=== PATIENT | male | born 1950 | race Caucasian/White ===

== ENCOUNTER 2019-06-23 16:13 | Inpatient (IN) | payer MEDICARE, BC ==
[2019-06-23] MEDS ORDERED: MORPHINE SULFATE 4 MG/ML SYRINGE IV STA (16:28)
[2019-06-23] MEDS ORDERED: SODIUM CHLORIDE 0.9% 1,000 ML IV STA (16:28)
[2019-06-23 16:57] LABS: Basophils % (A) 0 %; Eosinophils # (A) 0.2 k/uL (0-0.7); Eosinophils % (A) 2 %; HCT 34.4 % (39.0-53.0); HGB 11.8 gm/dL (13.0-17.5); Lymphocytes # (A) 0.7 k/uL (1.0-4.8); Lymphocytes % (A) 6 %; MCH 32.2 pg (25.0-35.0); MCHC 34.4 g/dL (31.0-37.0); MCV 93.6 fL (80.0-100.0); Mean Platelet Volume 8.2; Monocytes # (A) 0.5 k/uL (0-1.0); Monocytes % (A) 4 %; Neutrophils % (A) 87 %; Platelet Count 237 k/uL (150-450); RBC 3.67 m/uL (4.30-5.90); RDW 13.8 % (11.5-15.5); WBC 11.4 k/uL (3.8-10.6)
[2019-06-23 17:06] LABS: Albumin 3.7 g/dL (3.5-5.0); Calcium 8.2 mg/dL (8.4-10.2); Total Bilirubin 0.5 mg/dL (0.2-1.3); Total Protein 6.3 g/dL (6.3-8.2)
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
[2019-06-23] MEDS ORDERED: IBUPROFEN 800 MG TAB PO STA (18:30)
[2019-06-23] MEDS ORDERED: ACETAMINOPHEN TAB 500 MG TAB PO STA (18:30)
[2019-06-23] MEDS ORDERED: ACETAMINOPHEN TAB 325 MG TAB PO PRN (18:30)
--- NOTE | 2019-06-23 18:56 | XR ---
EXAMINATION TYPE: XR abdomen acute w cxr DATE OF EXAM: 06/23/2019 COMPARISON: 10/17/2016 HISTORY: Abdominal pain TECHNIQUE: Chest x-ray with supine and upright abdomen FINDINGS: There is no heart failure nor confluent pneumonic infiltrate. Heart appears slightly enlarged. There are sternal wires. Costophrenic angles are clear. There is no sign of intestinal obstruction or pneumoperitoneum. There is apparent contrast in the rig ht colon. There is vascular calcification. There are no definite renal pathologic calcifications. Abd ominal aorta is atheromatous. IMPRESSION: Mild cardiomegaly. No active cardiopulmonary disease. Nonacute abdomen. Abdomen unchanged compared to old exam.
[2019-06-23] MEDS ORDERED: VANCOMYCIN IV PER PHARMACY 1 EACH MISC MISCELLANE PRN (19:34)
[2019-06-23] MEDS ORDERED: VANCOMYCIN 1,500 MG in SODIUM CHLORIDE 0.9% 250 ML IVPB ONE (20:30)
[2019-06-23] MEDS: MORPHINE SULFATE 4 MG/ML SYRINGE IVP PRN (22:07)
[2019-06-23] MEDS ORDERED: DOCUSATE 100 MG CAP PO PRN (22:29)
[2019-06-23] MEDS ORDERED: CALCIUM ACETATE 667 MG CAP PO PRN (22:29)
[2019-06-23] MEDS ORDERED: SENNOSIDES 8.6 MG TAB PO PRN (22:29)
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
[2019-06-23] MEDS ORDERED: LACTULOSE 20 GM/30 ML CUP PO PRN (22:39)
[2019-06-23] MEDS ORDERED: DIALYSIS (PERIT 1.5%) 2,000 ML 30 G/2,000 ML BAG INTRAPERIT ONE (23:00)
[2019-06-23] MEDS: CEFEPIME 2 GM in SODIUM CHLORIDE 0.9% 100 ML IVPB SCH (23:42)
[2019-06-24 01:13] LABS: Color,BF Yellow
[2019-06-24 01:14] LABS: Appearance,BF Clear
[2019-06-24 01:16] LABS: Nucleated Cells, Body Fluid 2345 /uL; RBC, Body Fluid 170 /uL
[2019-06-24 01:28] LABS: Mononuclear WBC,Body Fluid 11 %; Polynuclear WBC,Body Fluid 89 %; Total Cells Counted,Body Fluid 100
[2019-06-24] MEDS: MORPHINE SULFATE 4 MG/ML SYRINGE IVP PRN ×2 (04:02→11:06)
[2019-06-24] MEDS ORDERED: DIALYSIS (PERIT 1.5%) 2,000 ML 30 G/2,000 ML BAG INTRAPERIT ONE (05:00)
[2019-06-24 07:02] LABS: Glucose,Whole Blood 116 mg/dL (75-99)
[2019-06-24] MEDS ORDERED: INSULIN ASPART (NovoLOG) 100 UNIT/ML VIAL SQ SCH (07:30)
[2019-06-24] MEDS: ATORVASTATIN 40 MG TAB PO SCH (07:32)
[2019-06-24] MEDS: CALCIUM ACETATE 667 MG CAP PO SCH ×3 (07:32→18:04)
[2019-06-24] MEDS: HEPARIN SODIUM,PORCINE 5,000 UNIT/ML 1 ML VIAL SQ SCH ×2 (07:33→21:32)
[2019-06-24] MEDS: CLOPIDOGREL 75 MG TAB PO SCH (07:33)
[2019-06-24] MEDS: NICOTINE 14MG/24HR PATCH TRANSDERM SCH (07:33)
[2019-06-24] MEDS: POTASSIUM CHLORIDE ER 20 MEQ TAB.ER PO SCH ×3 (07:33→14:28)
[2019-06-24] MEDS: CALCITRIOL 0.25 MCG CAP PO SCH (07:33)
[2019-06-24] MEDS: ASPIRIN 81 MG PO SCH (07:33)
[2019-06-24 07:44] LABS: Calcium 7.4 mg/dL (8.4-10.2); Potassium 2.8 mmol/L (3.5-5.1)
[2019-06-24 07:57] LABS: HCT 28.6 % (39.0-53.0); MCH 32.9 pg (25.0-35.0); MCHC 34.5 g/dL (31.0-37.0); MCV 95.4 fL (80.0-100.0); Mean Platelet Volume 7.9; Platelet Count 184 k/uL (150-450); RBC 2.99 m/uL (4.30-5.90); RDW 15.1 % (11.5-15.5); WBC 6.6 k/uL (3.8-10.6)
[2019-06-24 08:02] LABS: HGB 9.9 gm/dL (13.0-17.5)
[2019-06-24] MEDS: DIALYSIS (PERIT 1.5%) 2,000 ML 30 G/2,000 ML BAG INTRAPERIT SCH ×3 (11:07→23:48)
[2019-06-24] MEDS ORDERED: POTASSIUM CHLORIDE 10 MEQ in WATER FOR INJECTION 1 100ML.BAG IVPB STA (11:11)
[2019-06-24] MEDS ORDERED: POTASSIUM CHLORIDE ER 20 MEQ TAB.ER PO STA (11:11)
--- NOTE | 2019-06-24 11:11 | P.PN ---
Subjective Progress Note Date: 06/24/19 Principal diagnosis: Pain in the abdomen Patient states that he is still having abdominal pain, pain is better with the pain medications but once that wears off the pain restarts again. No shortness of breath or chest pain, no fevers or chills. Objective - Vital Signs Vital signs: Vital Signs Temp 98.3 F 06/24/19 07:00 Pulse 62 06/24/19 07:00 Resp 16 06/24/19 07:00 BP 144/72 06/24/19 07:00 Pulse Ox 98 06/24/19 07:00 Intake & Output 06/23/19 06/24/19 06/24/19 18:59 06:59 18:59 Intake Total 550 180 Balance 550 180 Weight 87.997 kg Intake: Intake, IV Titration 350 Amount Cefepime 2 gm In Sodium 100 Chloride 0.9% 100 ml @ 200 mls/hr IVPB Q48H [facility] Rx#:[id number] Vancomycin 1,500 mg In 250 Sodium Chloride 0.9% 250 ml @ 125 mls/hr IVPB ONCE ONE Rx#:[id number] Oral 200 180 Other: Voiding Method CAPD CAPD # Voids 0 - Exam Constitutional: No acute distress, conversant, pleasant Eyes:Anicteric sclerae, moist conjunctiva, no lid-lag, PERRLA, ENMT: Oropharynx clear, no erythema, exudates Neck: Supple, FROM, no masses, or JVD, No carotid bruits, No thyromegaly Lungs: Clear to auscultation, Clear to percussion, Normal respiratory effort, no accessory muscle use Cardiovascular: Heart regular in rate and rhythm, No murmurs, gallops, or rubs, No peripheral edema Abdominal: Soft, diffusely tender, peritoneal cath in place. No guarding, rebound or rigidity, Normoactive bowel sounds, No hepatomegaly, No splenomegaly, No palpable mass Skin: Normal temperature, tone, texture, turgor, no induration, No subcutaneous nodules, No rash, lesions, No ulcers Extremities: No digital cyanosis, No clubbing, Pedal pulses intact and symmetr ical, Radial pulses intact and symmetrical, No calf tenderness Psychiatric: Alert and oriented to person, place and time, appropriate affect, intact judgement Neuro: Muscles Strength 5/5 in all 4 extremities, Sensation to light touch grossly present throughout, Cranial nerves II-XII grossly intact, no focal sensory deficits - Labs CBC & Chem 7: 06/24/19 07:16 06/24/19 07:16 Labs: Abnormal Lab Results - Last 24 Hours (Table) 06/23/19 06/23/19 06/23/19 Range/Units 16:44 16:44 16:44 WBC 11.4 H (3.8-10.6) k/uL RBC 3.67 L (4.30-5.90) m/uL Hgb 11.8 L (13.0-17.5) gm/dL Hct 34.4 L (39.0-53.0) % Neutrophils # 10.0 H (1.3-7.7) k/uL Lymphocytes # 0.7 L (1.0-4.8) k/uL Sodium 134 L (137-145) mmol/L Potassium 3.0 L (3.5-5.1) mmol/L Chloride 93 L (98-107) mmol/L BUN 45 H (9-20) mg/dL Creatinine 10.28 H* (0.66-1.25) mg/dL Glucose 176 H (74-99) mg/dL POC Glucose (mg/dL) (75-99) mg/dL Plasma Lactic Acid Delgado 2.1 H* (0.7-2.0) mmol/L Calcium 8.2 L (8.4-10.2) mg/dL Troponin I (0.000-0.034) ng/mL 06/23/19 06/24/19 06/24/19 Range/Units 16:44 06:51 07:16 WBC (3.8-10.6) k/uL RBC 2.99 L (4.30-5.90) m/uL Hgb 9.9 L D (13.0-17.5) gm/dL Hct 28.6 L (39.0-53.0) % Neutrophils # (1.3-7.7) k/uL Lymphocytes # (1.0-4.8) k/uL Sodium (137-145) mmol/L Potassium (3.5-5.1) mmol/L Chloride (98-107) mmol/L BUN (9-20) mg/dL Creatinine (0.66-1.25) mg/dL Glucose (74-99) mg/dL POC Glucose (mg/dL) 116 H (75-99) mg/dL Plasma Lactic Acid Delgado (0.7-2.0) mmol/L Calcium (8.4-10.2) mg/dL Troponin I 0.150 H* (0.000-0.034) ng/mL 06/24/19 Range/Units 07:16 WBC (3.8-10.6) k/uL RBC (4.30-5.90) m/uL Hgb (13.0-17.5) gm/dL Hct (39.0-53.0) % Neutrophils # (1.3-7.7) k/uL Lymphocytes # (1.0-4.8) k/uL Sodium 134 L (137-145) mmol/L Potassium 2.8 L (3.5-5.1) mmol/L Chloride 95 L (98-107) mmol/L BUN 45 H (9-20) mg/dL Creatinine 10.16 H* (0.66-1.25) mg/dL Glucose 103 H (74-99) mg/dL POC Glucose (mg/dL) (75-99) mg/dL Plasma Lactic Acid Delgado (0.7-2.0) mmol/L Calcium 7.4 L (8.4-10.2) mg/dL Troponin I (0.000-0.034) ng/mL Microbiology - Last 24 Hours (Table) 06/24/19 00:30 Body Fluid Culture - Preliminary Peritoneal Fluid Assessment and Plan Plan: Severe sepsis secondary to peritoneal dialysis catheter associated peritonitis -The patient started on IV cefepime and vancomycin -Infectious disease consult -Follow-up peritoneal fluid culture and gram-stain -Pain control Lactic acidosis -Followed to resolution Elevated troponin -At baseline -In setting of ESRD ESRD -Nephrology consulted regarding resumption of dialysis Chronic conditions: Coronary artery disease, CHF, COPD, CVA, hypertension, diabetes mellitus -Hold antihypertensives in setting of sepsis, resume as warranted -Blood glucose monitoring, lispro insulin sliding scale -Resume home meds DVT prophylaxis -Heparin Anticipated discharge date: 06/26/[address]: Home
[2019-06-24 11:39] LABS: Glucose,Whole Blood 118 mg/dL (75-99)
[2019-06-24] MEDS ORDERED: LACTULOSE 20 GM/30 ML CUP PO PRN (11:50)
[2019-06-24] MEDS ORDERED: VANCOMYCIN 1,500 MG in SODIUM CHLORIDE 0.9% 250 ML IVPB ONE (12:00)
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
[2019-06-24] MEDS ORDERED: DARBEPOETIN ALFA 40 MCG/0.4 ML SYRINGE SQ SCH (14:00)
[2019-06-24 16:21] LABS: Total Protein, Body Fluid 214.2 mg/dL
[2019-06-24] MEDS: ONDANSETRON 4 MG/2 ML VIAL IVP PRN (18:04)
[2019-06-24 19:35] LABS: Color,BF Colorless
[2019-06-24 19:36] LABS: Appearance,BF Cloudy
[2019-06-24 20:45] LABS: Nucleated Cells, Body Fluid 110 /uL; RBC, Body Fluid 22 /uL
[2019-06-24 20:47] LABS: Mononuclear WBC,Body Fluid 9 %; Polynuclear WBC,Body Fluid 91 %; Total Cells Counted,Body Fluid 100
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
[2019-06-24] MEDS ORDERED: DIALYSIS (PERIT 1.5%) 2,000 ML 30 G/2,000 ML BAG INTRAPERIT SCH (23:08)
[2019-06-24] MEDS: metroNIDAZOLE-NS PMX 500 MG in SALINE 1 100ML.BAG IVPB SCH (23:49)
[2019-06-25] MEDS ORDERED: DIALYSIS (PERIT 1.5%) 2,000 ML 30 G/2,000 ML BAG INTRAPERIT ONE (05:00)
[2019-06-25] MEDS ORDERED: VANCOMYCIN TROUGH DUE 1 EACH MISC MISCELLANE ONE (06:00)
[2019-06-25] MEDS: ATORVASTATIN 40 MG TAB PO SCH (07:55)
[2019-06-25] MEDS: NICOTINE 14MG/24HR PATCH TRANSDERM SCH (07:55)
[2019-06-25] MEDS: CLOPIDOGREL 75 MG TAB PO SCH (07:55)
[2019-06-25] MEDS: CALCIUM ACETATE 667 MG CAP PO SCH ×3 (07:55→17:52)
[2019-06-25] MEDS: ASPIRIN 81 MG PO SCH (07:56)
[2019-06-25] MEDS: HEPARIN SODIUM,PORCINE 5,000 UNIT/ML 1 ML VIAL SQ SCH ×2 (07:56→20:28)
[2019-06-25] MEDS: POTASSIUM CHLORIDE ER 20 MEQ TAB.ER PO SCH (07:56)
[2019-06-25] MEDS: metroNIDAZOLE-NS PMX 500 MG in SALINE 1 100ML.BAG IVPB SCH ×3 (07:57→23:47)
[2019-06-25 08:54] LABS: Albumin 2.6 g/dL (3.5-5.0); Calcium 7.7 mg/dL (8.4-10.2); Magnesium 1.5 mg/dL (1.6-2.3); Potassium 3.7 mmol/L (3.5-5.1); Total Bilirubin 0.4 mg/dL (0.2-1.3); Total Protein 4.7 g/dL (6.3-8.2)
[2019-06-25 08:59] LABS: Vancomycin,Random 29.5 ug/mL
[2019-06-25] MEDS: DIALYSIS (PERIT 1.5%) 2,000 ML 30 G/2,000 ML BAG INTRAPERIT SCH ×3 (10:55→23:15)
--- NOTE | 2019-06-25 13:28 | P.PN ---
Subjective patient is seen in follow-up for end-stage renal disease. He is maintained on peritoneal dialysis. Currently being treated for bacterial peritonitis. He is maintained on daily intraperitoneal ceftazidime and he received intraperitoneal vancomycin on June 23. Cell count is trending down. Dialysate is clear. Abdominal pain is better. Admits to constipation. Vital signs are stable. General: The patient appeared well nourished and normally developed. HEENT: Head exam is unremarkable. Neck is without jugular venous distension. LUNGS: Lungs are clear to auscultation and percussion. Breath sounds decreased. HEART: Rate and Rhythm are regular. First and second heart sounds normal. No murmurs, rubs or gallops. ABDOMEN: Abdominal exam reveals normal bowel sounds. Non-tender and non- distended. No evidence of peritonitis. EXTREMITITES: No clubbing, cyanosis, or edema. Objective - Vital Signs Vital signs: Vital Signs Temp 98.7 F 06/25/19 10:55 Pulse 76 06/25/19 10:55 Resp 14 06/25/19 10:55 BP 131/72 06/25/19 10:55 Pulse Ox 92 L 06/25/19 10:55 Intake & Output 06/24/19 06/25/19 06/25/19 18:59 06:59 18:59 Intake Total 660 240 Output Total 0 Balance 660 240 Intake: Oral 660 240 Output: Urine 0 Other: Voiding Method CAPD CAPD # Voids 0 0 - Labs CBC & Chem 7: 06/24/19 07:16 06/25/19 05:21 Labs: Abnormal Lab Results - Last 24 Hours (Table) 06/25/19 Range/Units 05:21 Sodium 135 L (137-145) mmol/L Chloride 96 L (98-107) mmol/L BUN 46 H (9-20) mg/dL Creatinine 10.04 H* (0.66-1.25) mg/dL Calcium 7.7 L (8.4-10.2) mg/dL Magnesium 1.5 L (1.6-2.3) mg/dL Total Protein 4.7 L (6.3-8.2) g/dL Albumin 2.6 L (3.5-5.0) g/dL Microbiology - Last 24 Hours (Table) 06/24/19 17:00 Gram Stain - Preliminary Peritoneal Fluid Body Fluid Culture - Preliminary 06/23/19 18:00 Blood Culture - Preliminary Blood No Growth after 24 hours 06/24/19 00:30 Gram Stain - Preliminary Peritoneal Fluid Body Fluid Culture - Preliminary Assessment and Plan Plan: Assessment: 1. End-stage renal disease maintained on peritoneal dialysis. 2. CAPD associated bacterial peritonitis. 3. Hypokalemia secondary to PD losses. Better. Maintained on daily potassium supplementation. 4. Anemia of chronic kidney disease maintained on Aranesp. 5. History of alcohol abuse. 6. 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 Plan: Maintain current PD exchanges with 2 L every 6 hours with 1.5% dextrose solution. Patient received intraperitoneal vancomycin on June 23. Maintain intraperitoneal ceftazidime 1 g with one exchange daily. Also on IV Flagyl per infectious disease. Repeat cell count culture and Gram stain from dialysate tomorrow. Lactulose as needed for constipation. Repeat electrolytes in the morning. Replace magnesium. 2 g IV today.
[2019-06-25] MEDS: MAGNESIUM SULFATE-D5W PMX 1 GM in DEXTROSE/WATER 1 100ML.BAG IVPB SCH ×2 (14:10→15:19)
--- NOTE | 2019-06-25 14:11 | P.PN ---
Subjective Progress Note Date: 06/25/19 Principal diagnosis: Pain in the abdomen Patient's abdominal pain is getting better today. No nausea or vomiting. No fevers or chills. Objective - Vital Signs Vital signs: Vital Signs Temp 98.7 F 06/25/19 10:55 Pulse 76 06/25/19 10:55 Resp 14 06/25/19 10:55 BP 131/72 06/25/19 10:55 Pulse Ox 92 L 06/25/19 10:55 Intake & Output 06/24/19 06/25/19 06/25/19 18:59 06:59 18:59 Intake Total 660 240 Output Total 0 Balance 660 240 Intake: Oral 660 240 Output: Urine 0 Other: Voiding Method CAPD CAPD # Voids 0 0 - Exam Constitutional: No acute distress, conversant, pleasant Eyes:Anicteric sclerae, moist conjunctiva, no lid-lag, PERRLA, ENMT: Oropharynx clear, no erythema, exudates Neck: Supple, FROM, no masses, or JVD, No carotid bruits, No thyromegaly Lungs: Clear to auscultation, Clear to percussion, Normal respiratory effort, no accessory muscle use Cardiovascular: Heart regular in rate and rhythm, No murmurs, gallops, or rubs, No peripheral edema Abdominal: Soft, diffusely tender, peritoneal cath in place. No guarding, rebound or rigidity, Normoactive bowel sounds, No hepatomegaly, No splenomegaly, No palpable mass Skin: Normal temperature, tone, texture, turgor, no induration, No subcutaneous nodules, No rash, lesions, No ulcers Extremities: No digital cyanosis, No clubbing, Pedal pulses intact and symmetrical, Radial pulses intact and symmetrical, No calf tenderness Psychiatric: Alert and oriented to person, place and time, appropriate affect, intact judgement Neuro: Muscles Strength 5/5 in all 4 extremities, Sensation to light touch grossly present throughout, Cranial nerves II-XII grossly intact, no focal sensory deficits - Labs CBC & Chem 7: 06/24/19 07:16 06/25/19 05:21 Labs: Abnormal Lab Results - Last 24 Hours (Table) 06/25/19 Range/Units 05:21 Sodium 135 L (137-145) mmol/L Chloride 96 L (98-107) mmol/L BUN 46 H (9-20) mg/dL Creatinine 10.04 H* (0.66-1.25) mg/dL Calcium 7.7 L (8.4-10.2) mg/dL Magnesium 1.5 L (1.6-2.3) mg/dL Total Protein 4.7 L (6.3-8.2) g/dL Albumin 2.6 L (3.5-5.0) g/dL Microbiology - Last 24 Hours (Table) 06/24/19 17:00 Gram Stain - Preliminary Peritoneal Fluid Body Fluid Culture - Preliminary 06/23/19 18:00 Blood Culture - Preliminary Blood No Growth after 24 hours 06/24/19 00:30 Gram Stain - Preliminary Peritoneal Fluid Body Fluid Culture - Preliminary Assessment and Plan Plan: Severe sepsis secondary to peritoneal dialysis catheter associated peritonitis -Continue intraperitoneal cefepime, and vancomycin -Infectious disease consult recommending IV flagyl -Follow-up peritoneal fluid WBC improving, follow up culture and gram-stain -Pain control Lactic acidosis -Followed to resolution Elevated troponin -At baseline -In setting of ESRD ESRD -Nephrology consulted -Continued on PD Chronic conditions: Coronary artery disease, CHF, COPD, CVA, hypertension, diabetes mellitus -Hold antihypertensives in setting of sepsis, resume as warranted -Blood glucose monitoring, lispro insulin sliding scale -Resume home meds DVT prophylaxis -Heparin Anticipated discharge date: 06/26/[address]: Home
[2019-06-25] MEDS: ONDANSETRON 4 MG/2 ML VIAL IVP PRN (16:28)
[2019-06-25] MEDS: CEFEPIME 2 GM in SODIUM CHLORIDE 0.9% 100 ML IVPB SCH (20:27)
[2019-06-25] MEDS: MELATONIN 3 MG TABLET PO PRN (23:46)
[2019-06-26] MEDS ORDERED: DIALYSIS (PERIT 1.5%) 2,000 ML 30 G/2,000 ML BAG INTRAPERIT SCH (05:00)
[2019-06-26] MEDS: POTASSIUM CHLORIDE ER 20 MEQ TAB.ER PO SCH (07:33)
[2019-06-26] MEDS: CALCIUM ACETATE 667 MG CAP PO SCH ×3 (07:33→17:02)
[2019-06-26] MEDS: metroNIDAZOLE-NS PMX 500 MG in SALINE 1 100ML.BAG IVPB SCH (07:34)
[2019-06-26] MEDS: HEPARIN SODIUM,PORCINE 5,000 UNIT/ML 1 ML VIAL SQ SCH ×2 (07:34→20:22)
[2019-06-26] MEDS: CLOPIDOGREL 75 MG TAB PO SCH (07:34)
[2019-06-26] MEDS: NICOTINE 14MG/24HR PATCH TRANSDERM SCH (07:34)
[2019-06-26] MEDS: CALCITRIOL 0.25 MCG CAP PO SCH (07:34)
[2019-06-26] MEDS: ASPIRIN 81 MG PO SCH (07:34)
[2019-06-26] MEDS: ATORVASTATIN 40 MG TAB PO SCH (07:34)
[2019-06-26] MEDS: ONDANSETRON 4 MG/2 ML VIAL IVP PRN (07:40)
[2019-06-26 07:42] LABS: Albumin, Fluid Source Peritoneal Fluid
[2019-06-26 07:54] LABS: Calcium 7.9 mg/dL (8.4-10.2); Magnesium 1.9 mg/dL (1.6-2.3); Potassium 3.9 mmol/L (3.5-5.1)
[2019-06-26 09:21] LABS: Vancomycin,Random 25.5 ug/mL
[2019-06-26 09:25] LABS: Appearance,BF Hazy; Color,BF Colorless; Nucleated Cells, Body Fluid 7 /uL; RBC, Body Fluid 10 /uL
[2019-06-26] MEDS: DIALYSIS (PERIT 1.5%) 2,000 ML 30 G/2,000 ML BAG INTRAPERIT SCH (11:17)
--- NOTE | 2019-06-26 12:03 | XR ---
EXAMINATION TYPE: XR chest 1V portable DATE OF EXAM: 06/26/2019 COMPARISON: Chest x-ray 10/13/2016, 06/23/2019 HISTORY: Shortness of breath TECHNIQUE: Single frontal view of the chest is obtained. FINDINGS: Patient is post median sternotomy. Heart remains enlarged. Interstitium is increased. Ther e is no evident pneumothorax. Question blunting of the costophrenic angles. IMPRESSION: Correlate for pulmonary venous hypertension and interstitial edema. Possible small effus ions.
--- NOTE | 2019-06-26 12:22 | P.PN ---
Subjective patient is seen in follow-up for end-stage renal disease. He is maintained on peritoneal dialysis. Currently being treated for bacterial peritonitis. He is maintained on daily intraperitoneal ceftazidime and he received intraperitoneal vancomycin on June 23. Cell count is trending down. Dialysate is clear. Abdominal pain is better. Feels more nauseous today. Vital signs are stable. General: The patient appeared well nourished and normally developed. HEENT: Head exam is unremarkable. Neck is without jugular venous distension. LUNGS: Lungs are clear to auscultation and percussion. Breath sounds decreased. HEART: Rate and Rhythm are regular. First and second heart sounds normal. No murmurs, rubs or gallops. ABDOMEN: Abdominal exam reveals normal bowel sounds. Non-tender and non- distended. No evidence of peritonitis. EXTREMITITES: No clubbing, cyanosis, or edema. Objective - Vital Signs Vital signs: Vital Signs Temp 97.9 F 06/26/19 07:00 Pulse 70 06/26/19 07:00 Resp 16 06/26/19 07:00 BP 126/71 06/26/19 07:00 Pulse Ox 97 06/26/19 07:00 Intake & Output 06/25/19 06/26/19 06/26/19 18:59 06:59 18:59 Intake Total 1040 200 Balance 1040 200 Intake: Intake, IV Titration 400 Amount Magnesium Sulfate-D5w Pmx 200 1 gm In Dextrose/Water 1 100ml.bag @ 100 mls/hr IVPB Q1H [facility] Rx#: [id number] metroNIDAZOLE-NS PMX 500 200 mg In Saline 1 100ml.bag @ 100 mls/hr IVPB Q8HR [facility] Rx#:[id number] Oral 640 200 Other: Voiding Method CAPD CAPD CAPD # Voids 0 - Labs CBC & Chem 7: 06/24/19 07:16 06/26/19 06:48 Labs: Abnormal Lab Results - Last 24 Hours (Table) 06/26/19 Range/Units 06:48 Sodium 133 L (137-145) mmol/L Chloride 96 L (98-107) mmol/L BUN 44 H (9-20) mg/dL Creatinine 9.55 H* (0.66-1.25) mg/dL Glucose 104 H (74-99) mg/dL Calcium 7.9 L (8.4-10.2) mg/dL Microbiology - Last 24 Hours (Table) 06/24/19 00:30 Gram Stain - Preliminary Peritoneal Fluid Body Fluid Culture - Preliminary 06/24/19 17:00 Gram Stain - Preliminary Peritoneal Fluid Body Fluid Culture - Preliminary 06/23/19 18:00 Blood Culture - Preliminary Blood No Growth after 48 hours Assessment and Plan Plan: Assessment: 1. End-stage renal disease maintained on peritoneal dialysis. 2. CAPD associated bacterial peritonitis. 3. Hypokalemia secondary to PD losses. Better. Maintained on daily potassium supplementation. 4. Anemia of chronic kidney disease maintained on Aranesp. 5. History of alcohol abuse. 6. 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 Plan: I will change his PD exchanges to 2 L alternating with 1.5% and 2.5% dextrose solution daily. Patient received intraperitoneal vancomycin on June 23. Maintain intraperitoneal ceftazidime 1 g with one exchange daily. Follow-up cultures. Lactulose as needed for constipation. Repeat electrolytes in the morning. Zofran as needed for nausea. Add Protonix daily.
[2019-06-26] MEDS: IPRATROPIUM-ALBUTEROL 3 ML NEB INHALATION SCH ×3 (13:04→20:45)
--- NOTE | 2019-06-26 13:58 | P.PN ---
Subjective Progress Note Date: 06/26/19 Principal diagnosis: Pain in the abdomen Patient states that he was really congested when he woke up this morning and it was hard for him to breathe. This resolved shortly after he woke up. No fevers or chills. Abdominal pain is better. Objective - Vital Signs Vital signs: Vital Signs Temp 97.9 F 06/26/19 07:00 Pulse 78 06/26/19 13:15 Resp 16 06/26/19 07:00 BP 126/71 06/26/19 07:00 Pulse Ox 96 06/26/19 13:07 Intake & Output 06/25/19 06/26/19 06/26/19 18:59 06:59 18:59 Intake Total 1040 200 Balance 1040 200 Intake: Intake, IV Titration 400 Amount Magnesium Sulfate-D5w Pmx 200 1 gm In Dextrose/Water 1 100ml.bag @ 100 mls/hr IVPB Q1H [facility] Rx#: [id number] metroNIDAZOLE-NS PMX 500 200 mg In Saline 1 100ml.bag @ 100 mls/hr IVPB Q8HR [facility] Rx#:[id number] Oral 640 200 Other: Voiding Method CAPD CAPD CAPD # Voids 0 - Exam Constitutional: No acute distress, conversant, pleasant Eyes:Anicteric sclerae, moist conjunctiva, no lid-lag, PERRLA, ENMT: Oropharynx clear, no erythema, exudates Neck: Supple, FROM, no masses, or JVD, No carotid bruits, No thyromegaly Lungs: Clear to auscultation, Clear to percussion, Normal respiratory effort, no accessory muscle use Cardiovascular: Heart regular in rate and rhythm, No murmurs, gallops, or rubs, No peripheral edema Abdominal: Soft, diffusely tender, peritoneal cath in place. No guarding, rebound or rigidity, Normoactive bowel sounds, No hepatomegaly, No splenomegaly, No palpable mass Skin: Normal temperature, tone, texture, turgor, no induration, No subcutaneous nodules, No rash, lesions, No ulcers Extremities: No digital cyanosis, No clubbing, Pedal pulses intact and symme trical, Radial pulses intact and symmetrical, No calf tenderness Psychiatric: Alert and oriented to person, place and time, appropriate affect, intact judgement Neuro: Muscles Strength 5/5 in all 4 extremities, Sensation to light touch grossly present throughout, Cranial nerves II-XII grossly intact, no focal sensory deficits - Labs CBC & Chem 7: 06/24/19 07:16 06/26/19 06:48 Labs: Abnormal Lab Results - Last 24 Hours (Table) 06/26/19 Range/Units 06:48 Sodium 133 L (137-145) mmol/L Chloride 96 L (98-107) mmol/L BUN 44 H (9-20) mg/dL Creatinine 9.55 H* (0.66-1.25) mg/dL Glucose 104 H (74-99) mg/dL Calcium 7.9 L (8.4-10.2) mg/dL Microbiology - Last 24 Hours (Table) 06/24/19 00:30 Gram Stain - Preliminary Peritoneal Fluid Body Fluid Culture - Preliminary 06/24/19 17:00 Gram Stain - Preliminary Peritoneal Fluid Body Fluid Culture - Preliminary 06/23/19 18:00 Blood Culture - Preliminary Blood No Growth after 48 hours Assessment and Plan Plan: Severe sepsis secondary to peritoneal dialysis catheter associated peritonitis -Continue intraperitoneal abx -Follow-up peritoneal fluid WBC improving, follow up culture and gram-stain -Pain control Lactic acidosis -Followed to resolution Elevated troponin -At baseline -In setting of ESRD ESRD -Nephrology consulted -Continued on PD SOB: -Duonebs -CXR Chronic conditions: Coronary artery disease, CHF, COPD, CVA, hypertension, diabetes mellitus -Hold antihypertensives in setting of sepsis, resume as warranted -Blood glucose monitoring, lispro insulin sliding scale -Resume home meds DVT prophylaxis -Heparin Anticipated discharge date: 06/26/[address]: Home
[2019-06-26] MEDS: PANTOPRAZOLE 40 MG TABLET PO SCH (14:08)
[2019-06-26] MEDS: DIALYSIS (PERIT 2.5%) 2,500 ML 50 G/2,000 ML BAG INTRAPERIT SCH (15:02)
[2019-06-26] MEDS ORDERED: DIALYSIS (PERIT 1.5%) 2,500 ML 30 G/2,000 ML BAG INTRAPERIT SCH (20:00)
[2019-06-26 20:55] LABS: Glucose,Whole Blood 134 mg/dL (75-99)
[2019-06-26] MEDS: MELATONIN 3 MG TABLET PO PRN (22:52)
[2019-06-27] MEDS: DIALYSIS (PERIT 2.5%) 2,500 ML 50 G/2,000 ML BAG INTRAPERIT SCH ×3 (02:15→21:28)
[2019-06-27] MEDS: ONDANSETRON 4 MG/2 ML VIAL IVP PRN (02:19)
[2019-06-27] MEDS: IPRATROPIUM-ALBUTEROL 3 ML NEB INHALATION SCH ×3 (05:45→20:52)
[2019-06-27 06:59] LABS: Glucose,Whole Blood 128 mg/dL (75-99)
[2019-06-27] MEDS ORDERED: cefTAZidime 1.25 GM in DIALYSIS (PERITONL) DEX 1.5% 2,000 ML INTRAPERIT SCH (08:00)
[2019-06-27] MEDS ORDERED: IPRATROPIUM-ALBUTEROL 3 ML NEB INHALATION STA (08:01)
[2019-06-27 08:20] LABS: Calcium 8.5 mg/dL (8.4-10.2); Magnesium 1.8 mg/dL (1.6-2.3); Potassium 4.3 mmol/L (3.5-5.1)
[2019-06-27] MEDS: HEPARIN SODIUM,PORCINE 5,000 UNIT/ML 1 ML VIAL SQ SCH ×2 (08:54→21:29)
[2019-06-27] MEDS: NICOTINE 14MG/24HR PATCH TRANSDERM SCH (08:54)
[2019-06-27] MEDS: PANTOPRAZOLE 40 MG TABLET PO SCH (08:54)
[2019-06-27] MEDS: CALCIUM ACETATE 667 MG CAP PO SCH ×3 (08:54→16:20)
[2019-06-27] MEDS: ATORVASTATIN 40 MG TAB PO SCH (08:54)
[2019-06-27] MEDS: POTASSIUM CHLORIDE ER 20 MEQ TAB.ER PO SCH (08:54)
[2019-06-27] MEDS: ASPIRIN 81 MG PO SCH (08:54)
[2019-06-27] MEDS: CLOPIDOGREL 75 MG TAB PO SCH (08:54)
[2019-06-27] MEDS: cefTAZidime 1.25 GM in DIALYSIS (PERITONL) DEX 2.5% 2,000 ML INTRAPERIT SCH (08:54)
--- NOTE | 2019-06-27 12:00 | ECHOF ---
Referral Reason:vt MEASUREMENTS -------- HEIGHT: 167.6 cm WEIGHT: 88.0 kg BP: 152/87 RVIDd: 2.6 cm (< 3.3) IVSd: 1.7 cm (0.6 - 1.1) LVIDd: 6.1 cm (3.9 - 5.3) LVPWd: 1.5 cm (0.6 - 1.1) IVSs: 2.3 cm LVIDs: 5.5 cm LVPWs: 1.4 cm LAESV Index (A-L): 47.22 ml/m Ao Diam: 3.1 cm (2.0 - 3.7) AV Cusp: 2.2 cm (1.5 - 2.6) LA Diam: 5.4 cm (2.7 - 3.8) EPSS: 2.0 cm MV E Saad: 0.86 m/s MV DecT: 243 ms MV A Saad: 0.65 m/s MV E/A Ratio: 1.32 RAP: 5.00 mmHg RVSP: 13.49 mmHg MV EF SLOPE: 115.89 mm/s (70 - 150) MV EXCURSION: 1.36 cm (> 18.000) FINDINGS -------- Sinus rhythm. This was a technically difficult study with suboptimal views. The left ventricle is mildly dilated. There is moderate concentric left ventricular hypertrophy. Overall left ventricular systolic function is severely impaired with, an EF between 20 - 25 %. Mitr al Doppler inflow pattern suggests diastolic filling abnormality. Septal wall motion is delayed and consistent with prior cardiac surgery. Basal anterior LV wall motion is hypokinetic. Mid anteri or LV wall motion is hypokinetic. Apical anterior LV wall motion is hypokinetic. Apical lateral LV wall motion is hypokinetic. Apical inferior LV wall motion is hypokinetic. Apical septum LV wall motion is hypokinetic. The right ventricle is normal in size. Left atrium is moderately dilated by volume. The right atrium was not well visualized. Lumason used Interatrial and interventricular septum intact. The aortic valve is trileaflet and appears structurally normal. There is no evidence of aortic regu rgitation. There is no evidence of aortic stenosis. Mild mitral annular calcification present. Moderate mitral regurgitation is present. Mild tricuspid regurgitation present. There is no evidence of pulmonary hypertension. The right v entricular systolic pressure, as measured by Doppler, is 13.49mmHg. The aortic root size is normal. IVC not well visualized There is no pericardial effusion. CONCLUSIONS -------- 1. Sinus rhythm. 2. This was a technically difficult study with suboptimal views. 3. The left ventricle is mildly dilated. 4. There is moderate concentric left ventricular hypertrophy. 5. Overall left ventricular systolic function is severely impaired with, an EF between 20 - 25 %. 6. Mitral Doppler inflow pattern suggests diastolic filling abnormality. 7. Septal wall motion is delayed and consistent with prior cardiac surgery. 8. Basal anterior LV wall motion is hypokinetic. 9. Mid anterior LV wall motion is hypokinetic. 10. Apical anterior LV wall motion is hypokinetic. 11. Apical lateral LV wall motion is hypokinetic. 12. Apical inferior LV wall motion is hypokinetic. 13. Apical septum LV wall motion is hypokinetic. 14. The right ventricle is normal in size. 15. Left atrium is moderately dilated by volume. 16. The right atrium was not well visualized. 17. Lumason used 18. Interatrial and interventricular septum intact. 19. The aortic valve is trileaflet and appears structurally normal. 20. There is no evidence of aortic regurgitation. 21. There is no evidence of aortic stenosis. 22. Mild mitral annular calcification present. 23. Moderate mitral regurgitation is present. 24. Mild tricuspid regurgitation present. 25. There is no evidence of pulmonary hypertension. 26. The right ventricular systolic pressure, as measured by Doppler, is 13.49mmHg. 27. The aortic root size is normal. 28. IVC not well visualized 29. There is no pericardial effusion. REDRAWER: Tayler Walker RDCS
[2019-06-27 12:13] LABS: Glucose,Whole Blood 154 mg/dL (75-99)
--- NOTE | 2019-06-27 12:36 | P.PN ---
Subjective patient is seen in follow-up for end-stage renal disease. He is maintained on peritoneal dialysis. Currently being treated for bacterial peritonitis. He is maintained on daily intraperitoneal ceftazidime and he received intraperitoneal vancomycin on June 23. Cell count is trending down. Dialysate is clear. Abdominal pain is better. Continues to have a cough. Also dyspneic at times. Vital signs are stable. General: The patient appeared well nourished and normally developed. HEENT: Head exam is unremarkable. Neck is without jugular venous distension. LUNGS: Lungs are clear to auscultation and percussion. Breath sounds decreased. HEART: Rate and Rhythm are regular. First and second heart sounds normal. No murmurs, rubs or gallops. ABDOMEN: Abdominal exam reveals normal bowel sounds. Non-tender and non- distended. No evidence of peritonitis. EXTREMITITES: No clubbing, cyanosis, or edema. Objective - Vital Signs Vital signs: Vital Signs Temp 97.4 F L 06/27/19 07:00 Pulse 92 06/27/19 08:15 Resp 16 06/27/19 07:00 BP 152/87 06/27/19 07:00 Pulse Ox 93 L 06/27/19 07:00 Intake & Output 06/26/19 06/27/19 06/27/19 18:59 06:59 18:59 Intake Total 200 250 250 Output Total 0 Balance 200 250 250 Intake: Oral 200 250 250 Output: Urine 0 Other: Voiding Method CAPD CAPD # Voids 0 - Labs CBC & Chem 7: 06/24/19 07:16 06/27/19 07:40 Labs: Abnormal Lab Results - Last 24 Hours (Table) 06/26/19 06/27/19 06/27/19 Range/Units 20:42 06:55 07:40 Sodium 134 L (137-145) mmol/L Chloride 95 L (98-107) mmol/L BUN 45 H (9-20) mg/dL Creatinine 9.84 H* (0.66-1.25) mg/dL Glucose 130 H (74-99) mg/dL POC Glucose (mg/dL) 134 H 128 H (75-99) mg/dL 06/27/19 Range/Units 11:56 Sodium (137-145) mmol/L Chloride (98-107) mmol/L BUN (9-20) mg/dL Creatinine (0.66-1.25) mg/dL Glucose (74-99) mg/dL POC Glucose (mg/dL) 154 H (75-99) mg/dL Microbiology - Last 24 Hours (Table) 06/26/19 06:00 Gram Stain - Preliminary Dialysate Body Fluid Culture - Preliminary 06/23/19 18:00 Blood Culture - Preliminary Blood No Growth after 72 hours 06/24/19 17:00 Gram Stain - Preliminary Peritoneal Fluid Body Fluid Culture - Preliminary 06/24/19 00:30 Gram Stain - Preliminary Peritoneal Fluid Body Fluid Culture - Preliminary Assessment and Plan Plan: Assessment: 1. End-stage renal disease maintained on peritoneal dialysis. 2. CAPD associated bacterial peritonitis. 3. Hypokalemia secondary to PD losses. Better. Maintained on daily potassium supplementation. 4. Anemia of chronic kidney disease maintained on Aranesp. 5. History of alcohol abuse. 6. 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 7. Systolic CHF with ejection fraction of 20-25% with moderate mitral regurgitation. Plan: I will change his PD exchanges to 2 L every 6 hours with 2.5% dextrose solution. If he is not maintaining a net negative fluid balance, I will add some exchanges with 4.25% solution. Patient received intraperitoneal vancomycin on June 23. Maintain intraperitoneal ceftazidime 1 g with one exchange daily. Follow-up cultures. Lactulose as needed for constipation. Repeat electrolytes in the morning.
--- NOTE | 2019-06-27 13:47 | P.PN ---
Subjective Progress Note Date: 06/27/19 Principal diagnosis: Pain in the abdomen Patient shortness of breath has improved. Overnight he had an episode of tachycardia. No chest pain. No dizziness. Objective - Vital Signs Vital signs: Vital Signs Temp 97.4 F L 06/27/19 07:00 Pulse 92 06/27/19 13:14 Resp 16 06/27/19 07:00 BP 152/87 06/27/19 07:00 Pulse Ox 93 L 06/27/19 07:00 Intake & Output 06/26/19 06/27/19 06/27/19 18:59 06:59 18:59 Intake Total 200 250 250 Output Total 0 Balance 200 250 250 Intake: Oral 200 250 250 Output: Urine 0 Other: Voiding Method CAPD CAPD # Voids 0 - Exam Constitutional: No acute distress, conversant, pleasant Eyes:Anicteric sclerae, moist conjunctiva, no lid-lag, PERRLA, ENMT: Oropharynx clear, no erythema, exudates Neck: Supple, FROM, no masses, or JVD, No carotid bruits, No thyromegaly Lungs: Clear to auscultation, Clear to percussion, Normal respiratory effort, no accessory muscle use Cardiovascular: Heart regular in rate and rhythm, No murmurs, gallops, or rubs, No peripheral edema Abdominal: Soft, diffusely tender, peritoneal cath in place. No guarding, rebound or rigidity, Normoactive bowel sounds, No hepatomegaly, No splenomegaly, No palpable mass Skin: Normal temperature, tone, texture, turgor, no induration, No subcutaneous nodules, No rash, lesions, No ulcers Extremities: No digital cyanosis, No clubbing, Pedal pulses intact and symmetrical, Radial pulses intact and symmetrical, No calf tenderness Psychiatric: Alert and oriented to person, place and time, appropriate affect, intact judgement Neuro: Muscles Strength 5/5 in all 4 extremities, Sensation to light touch grossly present throughout, Cranial nerves II-XII grossly intact, no focal sensory deficits - Labs CBC & Chem 7: 06/24/19 07:16 06/27/19 07:40 Labs: Abnormal Lab Results - Last 24 Hours (Table) 06/26/19 06/27/19 06/27/19 Range/Units 20:42 06:55 07:40 Sodium 134 L (137-145) mmol/L Chloride 95 L (98-107) mmol/L BUN 45 H (9-20) mg/dL Creatinine 9.84 H* (0.66-1.25) mg/dL Glucose 130 H (74-99) mg/dL POC Glucose (mg/dL) 134 H 128 H (75-99) mg/dL 06/27/19 Range/Units 11:56 Sodium (137-145) mmol/L Chloride (98-107) mmol/L BUN (9-20) mg/dL Creatinine (0.66-1.25) mg/dL Glucose (74-99) mg/dL POC Glucose (mg/dL) 154 H (75-99) mg/dL Microbiology - Last 24 Hours (Table) 06/24/19 00:30 Gram Stain - Preliminary Peritoneal Fluid Body Fluid Culture - Preliminary 06/26/19 06:00 Gram Stain - Preliminary Dialysate Body Fluid Culture - Preliminary 06/23/19 18:00 Blood Culture - Preliminary Blood No Growth after 72 hours 06/24/19 17:00 Gram Stain - Preliminary Peritoneal Fluid Body Fluid Culture - Preliminary Assessment and Plan Plan: Severe sepsis secondary to peritoneal dialysis catheter associated peritonitis -Continue intraperitoneal abx -Follow-up peritoneal fluid WBC improving, culture and gram-stain negative -Pain control Sinus tachycardia/pulm edema/acute systolic CHF D/W, nephro Likely sec to CHF, echo done, showing worsening EF compared to 3 years ago Consult cardiology. Elevated troponin -At baseline -In setting of ESRD ESRD -Nephrology consulted -Continued on PD SOB: -Duonebs -CXR Chronic conditions: Coronary artery disease, CHF, COPD, CVA, hypertension, diabetes mellitus -Hold antihypertensives in setting of sepsis, resume as warranted -Blood glucose monitoring, lispro insulin sliding scale -Resume home meds DVT prophylaxis -Heparin Anticipated discharge date: 06/28/[address]: Home
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
[2019-06-27] MEDS: CARVEDILOL 12.5 MG TAB PO SCH ×2 (15:24→21:23)
[2019-06-27 16:50] LABS: Glucose,Whole Blood 138 mg/dL (75-99)
[2019-06-27] MEDS: MELATONIN 3 MG TABLET PO PRN (22:42)
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
[2019-06-28] MEDS: DIALYSIS (PERIT 2.5%) 2,500 ML 50 G/2,000 ML BAG INTRAPERIT SCH ×3 (03:00→22:27)
[2019-06-28 08:44] LABS: Albumin 2.9 g/dL (3.5-5.0); Calcium 8.3 mg/dL (8.4-10.2); Total Bilirubin 0.5 mg/dL (0.2-1.3); Total Protein 5.1 g/dL (6.3-8.2)
[2019-06-28] MEDS: IPRATROPIUM-ALBUTEROL 3 ML NEB INHALATION SCH ×3 (09:01→21:06)
--- NOTE | 2019-06-28 09:26 | P.PN ---
Subjective patient is seen in follow-up for end-stage renal disease. He is maintained on peritoneal dialysis. Currently being treated for bacterial peritonitis. He is maintained on daily intraperitoneal ceftazidime and he received intraperitoneal vancomycin on June 23. Cell count is trending down. Dialysate is clear. Abdominal pain is better. Dyspnea better. He is maintaining a net negative fluid balance. Vital signs are stable. General: The patient appeared well nourished and normally developed. HEENT: Head exam is unremarkable. Neck is without jugular venous distension. LUNGS: Lungs are clear to auscultation and percussion. Breath sounds decreased. HEART: Rate and Rhythm are regular. First and second heart sounds normal. No murmurs, rubs or gallops. ABDOMEN: Abdominal exam reveals normal bowel sounds. Non-tender and non- distended. No evidence of peritonitis. EXTREMITITES: No clubbing, cyanosis, or edema. Objective - Vital Signs Vital signs: Vital Signs Temp 97.7 F 06/28/19 07:00 Pulse 68 06/28/19 09:12 Resp 14 06/28/19 07:00 BP 135/79 06/28/19 07:00 Pulse Ox 94 L 06/28/19 07:00 Intake & Output 06/27/19 06/28/19 06/28/19 18:59 06:59 18:59 Intake Total 500 480 Balance 500 480 Intake: Oral 500 480 Other: Voiding Method CAPD # Voids 3 - Labs CBC & Chem 7: 06/24/19 07:16 06/28/19 07:12 Labs: Abnormal Lab Results - Last 24 Hours (Table) 06/27/19 06/27/19 06/28/19 Range/Units 11:56 16:48 07:12 Sodium 135 L (137-145) mmol/L Chloride 97 L (98-107) mmol/L BUN 45 H (9-20) mg/dL Creatinine 10.10 H* (0.66-1.25) mg/dL Glucose 101 H (74-99) mg/dL POC Glucose (mg/dL) 154 H 138 H (75-99) mg/dL Calcium 8.3 L (8.4-10.2) mg/dL AST 151 H (17-59) U/L Total Protein 5.1 L (6.3-8.2) g/dL Albumin 2.9 L (3.5-5.0) g/dL TSH 0.353 L (0.465-4.680) mIU/L Microbiology - Last 24 Hours (Table) 06/26/19 06:00 Gram Stain - Preliminary Dialysate Body Fluid Culture - Preliminary 06/24/19 00:30 Gram Stain - Final Peritoneal Fluid Body Fluid Culture - Final 06/23/19 18:00 Blood Culture - Preliminary Blood No Growth after 96 hours 06/24/19 17:00 Gram Stain - Preliminary Peritoneal Fluid Body Fluid Culture - Preliminary Assessment and Plan Plan: Assessment: 1. End-stage renal disease maintained on peritoneal dialysis. 2. CAPD associated bacterial peritonitis. 3. Hypokalemia secondary to PD losses. Better. Maintained on daily potassium supplementation. 4. Anemia of chronic kidney disease maintained on Aranesp. 5. History of alcohol abuse. 6. 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 7. Systolic CHF with ejection fraction of 20-25% with moderate mitral regurgitation. Plan: Maintain current PD exchanges - 2 L every 6 hours with 2.5% dextrose solution. Patient received intraperitoneal vancomycin on June 23. Maintain intraperitoneal ceftazidime 1 g with one exchange daily. Follow-up cultures. Lactulose as needed for constipation. Repeat electrolytes in the morning.
--- NOTE | 2019-06-28 09:30 | P.PN ---
Subjective Progress Note Date: 06/28/19 Principal diagnosis: Pain in the abdomen Patient is having significant weakness in his legs. He had 2 episodes of nonsustained V. tach last night one with 7 beats and the other was 9 beats. No chest pain. He is feeling that his breathing is ''okay''. Objective - Vital Signs Vital signs: Vital Signs Temp 97.7 F 06/28/19 07:00 Pulse 68 06/28/19 09:12 Resp 14 06/28/19 07:00 BP 135/79 06/28/19 07:00 Pulse Ox 94 L 06/28/19 07:00 Intake & Output 06/27/19 06/28/19 06/28/19 18:59 06:59 18:59 Intake Total 500 480 Balance 500 480 Intake: Oral 500 480 Other: Voiding Method CAPD # Voids 3 - Exam Constitutional: No acute distress, conversant, pleasant Eyes:Anicteric sclerae, moist conjunctiva, no lid-lag, PERRLA, ENMT: Oropharynx clear, no erythema, exudates Neck: Supple, FROM, no masses, or JVD, No carotid bruits, No thyromegaly Lungs: Clear to auscultation, Clear to percussion, Normal respiratory effort, no accessory muscle use Cardiovascular: Heart regular in rate and rhythm, No murmurs, gallops, or rubs, No peripheral edema Abdominal: Soft, diffusely tender, peritoneal cath in place. No guarding, rebo und or rigidity, Normoactive bowel sounds, No hepatomegaly, No splenomegaly, No palpable mass Skin: Normal temperature, tone, texture, turgor, no induration, No subcutaneous nodules, No rash, lesions, No ulcers Extremities: No digital cyanosis, No clubbing, Pedal pulses intact and symmetrical, Radial pulses intact and symmetrical, No calf tenderness Psychiatric: Alert and oriented to person, place and time, appropriate affect, intact judgement Neuro: Muscles Strength 5/5 in all 4 extremities, Sensation to light touch grossly present throughout, Cranial nerves II-XII grossly intact, no focal sensory deficits - Labs CBC & Chem 7: 06/24/19 07:16 06/28/19 07:12 Labs: Abnormal Lab Results - Last 24 Hours (Table) 06/27/19 06/27/19 06/28/19 Range/Units 11:56 16:48 07:12 Sodium 135 L (137-145) mmol/L Chloride 97 L (98-107) mmol/L BUN 45 H (9-20) mg/dL Creatinine 10.10 H* (0.66-1.25) mg/dL Glucose 101 H (74-99) mg/dL POC Glucose (mg/dL) 154 H 138 H (75-99) mg/dL Calcium 8.3 L (8.4-10.2) mg/dL AST 151 H (17-59) U/L Total Protein 5.1 L (6.3-8.2) g/dL Albumin 2.9 L (3.5-5.0) g/dL TSH 0.353 L (0.465-4.680) mIU/L Microbiology - Last 24 Hours (Table) 06/26/19 06:00 Gram Stain - Preliminary Dialysate Body Fluid Culture - Preliminary 06/24/19 00:30 Gram Stain - Final Peritoneal Fluid Body Fluid Culture - Final 06/23/19 18:00 Blood Culture - Preliminary Blood No Growth after 96 hours 06/24/19 17:00 Gram Stain - Preliminary Peritoneal Fluid Body Fluid Culture - Preliminary Assessment and Plan Plan: Severe sepsis secondary to peritoneal dialysis catheter associated peritonitis -Continue intraperitoneal abx -Follow-up peritoneal fluid WBC improving, culture and gram-stain negative -Pain control Nonsustained V. tach/pulm edema/acute systolic CHF Likely sec to CHF, echo done, showing worsening EF compared to 3 years ago, currently 20-25% Discussed with cardiology. Would likely need ICD placement, cardiology would defer that until after peritonitis resolves. Restart his Coreg Elevated troponin -At baseline -In setting of ESRD ESRD -Nephrology consulted -Continued on PD SOB: -Duonebs -CXR Chronic conditions: Coronary artery disease, CHF, COPD, CVA, hypertension, diabetes mellitus -Hold antihypertensives in setting of sepsis, resume as warranted -Blood glucose monitoring, lispro insulin sliding scale -Resume home meds DVT prophylaxis -Heparin General weakness Patient doesn't feel safe to go home PT to reevaluate for possible rehab Anticipated discharge date: 06/28/[address]: Home
[2019-06-28] MEDS: cefTAZidime 1.25 GM in DIALYSIS (PERITONL) DEX 2.5% 2,000 ML INTRAPERIT SCH (11:12)
[2019-06-28] MEDS: ISOSORBIDE MONONITRATE ER 30 MG TAB.ER.24H PO SCH (11:16)
[2019-06-28] MEDS: CALCIUM ACETATE 667 MG CAP PO SCH ×3 (11:16→18:57)
[2019-06-28] MEDS: amLODIPine 5 MG TAB PO SCH (11:16)
[2019-06-28] MEDS: LISINOPRIL 10 MG TAB PO SCH (11:16)
[2019-06-28] MEDS: NICOTINE 14MG/24HR PATCH TRANSDERM SCH (11:16)
[2019-06-28] MEDS: ASPIRIN 81 MG PO SCH (11:16)
[2019-06-28] MEDS: PANTOPRAZOLE 40 MG TABLET PO SCH (11:16)
[2019-06-28] MEDS: POTASSIUM CHLORIDE ER 20 MEQ TAB.ER PO SCH (11:16)
[2019-06-28] MEDS: CARVEDILOL 12.5 MG TAB PO SCH ×2 (11:17→18:57)
[2019-06-28] MEDS: CLOPIDOGREL 75 MG TAB PO SCH (11:17)
[2019-06-28] MEDS: ATORVASTATIN 40 MG TAB PO SCH (11:17)
[2019-06-28] MEDS: HEPARIN SODIUM,PORCINE 5,000 UNIT/ML 1 ML VIAL SQ SCH ×2 (11:17→22:28)
--- NOTE | 2019-06-28 12:01 | P.PN ---
Subjective This is a pleasant 69-year-old male past medical history significant for coronary artery disease s/p 4-vessel bypass grafting with subsequent stent placement and per the patient one graft is down, ischemic cardiomyopathy, chronic systolic heart failure, end stage renal disease on peritoneal dialysis, COPD, hypertension, dyslipidemia, abdominal aortic aneurysm 5.6 cm and chronic nicotine dependence. He follows with a box office attendant out of town. We have been asked to see him in consultation for palpitations. He initially presented to the hospital with symptoms of abdominal pain, nausea, vomiting and diarrhea. He also noticed his dialysis fluid has been cloudy. He was febrile on admission. He has been diagnosed with sepsis. He is currently maintained on IV antibiotics. Last evening he had an episode of tachycardia noted on routine vital signs. At that time he was placed on the monitor and found to be in sinus tachycardia heart rate in the 130's. EKG obtained revealed right bundle branch block and lateral ST abnormalities. Telemetry tracings indicate he is having episodes of non-sustained VT. He denies feeling these episodes. He denies chest pain, dizziness or palpitations. He states overall he does not feel well, feels short of breath and is quite weak. Chest x-ray reveals pulmonary venous hypertension and interstitial edema. Laboratory data reviewed, sodium 134, potassium 4.3, creatinine 9.84 with a GFR 5, magnesium 1.8, hemoglobin 9.9, platelets 184, WBC 11.4, lactic acid on admission 2.1. Current cardiac medications include amlodipine 5 mg daily, lisinopril 10 mg daily, Imdur 30 mg daily, Plavix 75 mg daily, carvedilol 25 mg twice a day, atorvastatin 40 mg daily and aspirin 81 mg daily. His carvedilol, amlodipine and lisinopril has been held since admission per the primary care team. Echocardiogram obtained reveals severely impaired LV systolic function with ejection fraction 20-25%, septal wall motion delay, basal anterior, mid anterior, apical anterior, apical lateral, apical inferior and apical septal wall motion hypokinesia, moderate MR and mild TR. 06/28/2019 Patient is seen and examined sitting up in bed in no acute distress. He states overall he does feel better than he did yesterday. He continues to have abdominal fullness. He denies symptoms of chest discomfort, shortness of breat h, dizziness or palpitations. Telemetry tracings continued to show brief episodes of nonsustained ventricular tachycardia. Patient is asymptomatic during these episodes. Laboratory data reviewed, sodium 135, potassium 4.0, creatinine 10.10, TSH 0.353. Blood pressure 135/79 heart rate 76 afebrile maintaining oxygen saturation on nasal cannula. Currently maintained on amlodipine 5 mg daily, aspirin 81 mg daily, atorvastatin 40 mg daily, carvedilol 25 mg twice a day, Plavix 75 mg daily, Imdur 30 mg daily, lisinopril 10 mg daily and potassium supplementation. GENERAL: This is a 69-year-old male in no apparent distress at the time of my examination. HEENT: Head is atraumatic, normocephalic. Pupils are equal, round. Sclerae anicteric. Conjunctivae are clear. Mucous membranes of the mouth are moist. Neck is supple. There is no jugular venous distention. No carotid bruit is heard. LUNGS: Clear to auscultation no wheezes, rales or rhonchi. No chest wall tenderness is noted on palpation or with deep breathing. Diminished bilaterally. HEART: Regular rate and rhythm with systolic ejection murmur at the left sternal border, no rubs or gallops. S1 and S2 heard. EXTREMITIES: No evidence of peripheral edema and no calf tenderness noted. ASSESSMENT Sepsis secondary to bacterial peritonitis Non-sustained ventricular tachycardia, asymptomatic. Beta lydia were held since admission. History of coronary artery disease status post bypass grafting Ischemic cardiomyopathy Chronic systolic heart failure, ejection fraction 20-25%. Hypertension Dyslipidemia End-stage renal disease on peritoneal dialysis COPD Abdominal aortic aneurysm Chronic nicotine dependence PLAN Ongoing medical management of sepsis per infectious disease and nephrology. Further evaluation and discussion regarding AICD implantation will take place as an outpatient with his primary box office attendant once his sepsis has resolved. Nonsustained VT is ongoing likely secondary to sepsis and being off of his beta lydia since admission. Continue beta blockers. Follow up with his primary box office attendant upon discharge. Nurse Practitioner note has been reviewed, I agree with a documented findings and plan of care. Patient was seen and examined. Objective - Vital Signs Vital signs: Vital Signs Temp 97.6 F 06/28/19 10:53 Pulse 76 06/28/19 10:53 Resp 18 06/28/19 10:53 BP 135/79 06/28/19 07:00 Pulse Ox 94 L 06/28/19 07:00 Intake & Output 06/27/19 06/28/19 06/28/19 18:59 06:59 18:59 Intake Total 500 480 Balance 500 480 Intake: Oral 500 480 Other: Voiding Method CAPD # Voids 3 - Labs CBC & Chem 7: 06/24/19 07:16 06/28/19 07:12 Labs: Abnormal Lab Results - Last 24 Hours (Table) 06/27/19 06/27/19 06/28/19 Range/Units 11:56 16:48 07:12 Sodium 135 L (137-145) mmol/L Chloride 97 L (98-107) mmol/L BUN 45 H (9-20) mg/dL Creatinine 10.10 H* (0.66-1.25) mg/dL Glucose 101 H (74-99) mg/dL POC Glucose (mg/dL) 154 H 138 H (75-99) mg/dL Calcium 8.3 L (8.4-10.2) mg/dL AST 151 H (17-59) U/L Total Protein 5.1 L (6.3-8.2) g/dL Albumin 2.9 L (3.5-5.0) g/dL TSH 0.353 L (0.465-4.680) mIU/L Microbiology - Last 24 Hours (Table) 06/26/19 06:00 Gram Stain - Preliminary Dialysate Body Fluid Culture - Preliminary 06/24/19 00:30 Gram Stain - Final Peritoneal Fluid Body Fluid Culture - Final 06/23/19 18:00 Blood Culture - Preliminary Blood No Growth after 96 hours 06/24/19 17:00 Gram Stain - Preliminary Peritoneal Fluid Body Fluid Culture - Preliminary
[2019-06-29] MEDS: MELATONIN 3 MG TABLET PO PRN ×2 (00:14→21:51)
[2019-06-29] MEDS: DIALYSIS (PERIT 2.5%) 2,500 ML 50 G/2,000 ML BAG INTRAPERIT SCH ×2 (03:42→21:14)
[2019-06-29] MEDS: CALCIUM ACETATE 667 MG CAP PO SCH ×3 (08:26→17:59)
[2019-06-29] MEDS: NICOTINE 14MG/24HR PATCH TRANSDERM SCH (08:27)
[2019-06-29] MEDS: PANTOPRAZOLE 40 MG TABLET PO SCH (08:27)
[2019-06-29] MEDS: ATORVASTATIN 40 MG TAB PO SCH (08:27)
[2019-06-29] MEDS: LISINOPRIL 10 MG TAB PO SCH (08:27)
[2019-06-29] MEDS: ISOSORBIDE MONONITRATE ER 30 MG TAB.ER.24H PO SCH (08:27)
[2019-06-29] MEDS: CLOPIDOGREL 75 MG TAB PO SCH (08:27)
[2019-06-29] MEDS: CARVEDILOL 12.5 MG TAB PO SCH ×2 (08:27→17:59)
[2019-06-29] MEDS: HEPARIN SODIUM,PORCINE 5,000 UNIT/ML 1 ML VIAL SQ SCH ×2 (08:28→21:51)
[2019-06-29] MEDS: ASPIRIN 81 MG PO SCH (08:28)
[2019-06-29] MEDS: amLODIPine 5 MG TAB PO SCH (08:28)
[2019-06-29] MEDS: POTASSIUM CHLORIDE ER 20 MEQ TAB.ER PO SCH ×2 (08:28→08:34)
[2019-06-29] MEDS: IPRATROPIUM-ALBUTEROL 3 ML NEB INHALATION SCH ×3 (09:21→19:07)
[2019-06-29] MEDS: cefTAZidime 1.25 GM in DIALYSIS (PERITONL) DEX 2.5% 2,000 ML INTRAPERIT SCH (10:41)
--- NOTE | 2019-06-29 11:03 | P.PN ---
Subjective patient is seen in follow-up for end-stage renal disease. He is maintained on peritoneal dialysis. Currently being treated for bacterial peritonitis. He is maintained on daily intraperitoneal ceftazidime and he received intraperitoneal vancomycin on June 23. Cell count is trending down. Dialysate is clear. Abdominal pain is better. Dyspnea better. He is maintaining a net negative fluid balance. No changes overnight. Vital signs are stable. General: The patient appeared well nourished and normally developed. HEENT: Head exam is unremarkable. Neck is without jugular venous distension. LUNGS: Lungs are clear to auscultation and percussion. Breath sounds decreased. HEART: Rate and Rhythm are regular. First and second heart sounds normal. No murmurs, rubs or gallops. ABDOMEN: Abdominal exam reveals normal bowel sounds. Non-tender and non- distended. No evidence of peritonitis. EXTREMITITES: No clubbing, cyanosis, or edema. Objective - Vital Signs Vital signs: Vital Signs Temp 97.7 F 06/29/19 07:00 Pulse 87 06/29/19 09:26 Resp 17 06/29/19 09:26 BP 109/58 06/29/19 09:26 Pulse Ox 87 L 06/29/19 09:26 Intake & Output 06/28/19 06/29/19 06/29/19 18:59 06:59 18:59 Intake Total 240 130 Output Total 0 Balance 0 240 130 Intake: Oral 240 130 Output: Urine 0 Other: Voiding Method CAPD CAPD # Voids 0 0 - Labs CBC & Chem 7: 06/24/19 07:16 06/28/19 07:12 Labs: Microbiology - Last 24 Hours (Table) 06/23/19 18:00 Blood Culture - Preliminary Blood No Growth after 120 hours 06/24/19 17:00 Gram Stain - Final Peritoneal Fluid Body Fluid Culture - Final 06/26/19 06:00 Gram Stain - Preliminary Dialysate Body Fluid Culture - Preliminary 06/24/19 00:30 Gram Stain - Final Peritoneal Fluid Body Fluid Culture - Final Assessment and Plan Plan: Assessment: 1. End-stage renal disease maintained on peritoneal dialysis. 2. CAPD associated bacterial peritonitis. Cultures negative. 3. Hypokalemia secondary to PD losses. Better. Maintained on daily potassium supplementation. 4. Anemia of chronic kidney disease maintained on Aranesp. 5. History of alcohol abuse. 6. 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 7. Systolic CHF with ejection fraction of 20-25% with moderate mitral regurgitation. Plan: Maintain current PD exchanges - 2 L every 6 hours with 2.5% dextrose solution. Patient received intraperitoneal vancomycin on June 23 - I will give him second dose today. Maintain intraperitoneal ceftazidime 1 g with one exchange daily. Lactulose as needed for constipation. Potential discharge tomorrow. Outpatient antibiotics will be set up to complete 2 week course of treatment.
--- NOTE | 2019-06-29 12:49 | P.PN ---
Subjective Progress Note Date: 06/29/19 Patient seen and examined and follow-up still having significant lower extremity weakness. No acute events overnight Objective - Vital Signs Vital signs: Vital Signs Temp 98.0 F 06/29/19 10:42 Pulse 68 06/29/19 12:13 Resp 17 06/29/19 10:42 BP 116/61 06/29/19 10:42 Pulse Ox 98 06/29/19 10:42 Intake & Output 06/28/19 06/29/19 06/29/19 18:59 06:59 18:59 Intake Total 240 130 Output Total 0 Balance 0 240 130 Intake: Oral 240 130 Output: Urine 0 Other: Voiding Method CAPD CAPD # Voids 0 0 - Exam Constitutional: No acute distress, conversant, pleasant Eyes: Anicteric sclerae, moist conjunctiva, no lid-lag, PERRLA ENMT: NC/AT,Oropharynx clear, no erythema, exudates Neck:Supple, FROM, no masses, or JVD, No carotid bruits; No thyromegaly Lungs: Clear to auscultation, Clear to percussion, Normal respiratory effort, no accessory muscle use Cardiovascular: Heart regular in rate and rhythm, No murmurs, gallops, or rubs no peripheral edema Abdominal: Soft Nontender, nom distended, no guarding, no rebound or rigidity, Normoactive bowel sounds No hepatomegaly, No splenomegaly, No palpable mass No abdominal wall hernia noted Skin: Normal temperature, tone, texture, turgor, No induration No subcutaneous nodules, No rash, lesions, No ulcers Extremities:No digital cyanosis No clubbing, Pedal pulses intact and sy mmetrical Radial pulses intact and symmetrical Normal gait and station, No calf tenderness Psychiatric: Alert and oriented to person, place and time, Appropriate affect Intact judgement Neuro: Muscles Strength 5/5 in all 4 extremities, Sensation to light touch grossly present throughout, Cranial nerves II-XII grossly intact. No focal sensory deficits - Labs CBC & Chem 7: 06/24/19 07:16 06/28/19 07:12 Labs: Microbiology - Last 24 Hours (Table) 06/26/19 06:00 Gram Stain - Preliminary Dialysate Body Fluid Culture - Preliminary 06/23/19 18:00 Blood Culture - Preliminary Blood No Growth after 120 hours 06/24/19 17:00 Gram Stain - Final Peritoneal Fluid Body Fluid Culture - Final Assessment and Plan Plan: Severe sepsis secondary to peritoneal dialysis catheter associated peritonitis -Continue intraperitoneal abx with ceftazidime has already received Int raperitoneal vancomycin 06/23 -Follow-up peritoneal fluid WBC improving, culture and gram-stain negative -Pain control Nonsustained V. tach/pulm edema/acute systolic CHF Likely sec to CHF, echo done, showing worsening EF compared to 3 years ago, currently 20-25% Discussed with cardiology. Would likely need ICD placement, cardiology would defer that until after peritonitis resolves. Restart his Coreg Elevated troponin -At baseline -In setting of ESRD ESRD -Nephrology consulted -Continued on PD SOB: -Duonebs -CXR Chronic conditions: Coronary artery disease, CHF, COPD, CVA, hypertension, d iabetes mellitus -Hold antihypertensives in setting of sepsis, resume as warranted -Blood glucose monitoring, lispro insulin sliding scale -Resume home meds DVT prophylaxis -Heparin General weakness Patient doesn't feel safe to go home PT to reevaluate for possible rehab Anticipated discharge date: 06/30/[address]: Home
[2019-06-29] MEDS ORDERED: VANCOMYCIN 1,000 MG VIAL MISCELLANE ONE (15:00)
[2019-06-29] MEDS ORDERED: VANCOMYCIN 1,250 MG in DIALYSIS (PERITONL) DEX 2.5% 2,000 ML INTRAPERIT ONE (15:00)
[2019-06-30] MEDS: DIALYSIS (PERIT 2.5%) 2,500 ML 50 G/2,000 ML BAG INTRAPERIT SCH ×3 (03:08→21:06)
[2019-06-30] MEDS: IPRATROPIUM-ALBUTEROL 3 ML NEB INHALATION SCH ×3 (07:06→19:17)
[2019-06-30] MEDS: LISINOPRIL 10 MG TAB PO SCH (09:04)
[2019-06-30] MEDS: CLOPIDOGREL 75 MG TAB PO SCH (09:04)
[2019-06-30] MEDS: PANTOPRAZOLE 40 MG TABLET PO SCH (09:05)
[2019-06-30] MEDS: HEPARIN SODIUM,PORCINE 5,000 UNIT/ML 1 ML VIAL SQ SCH ×2 (09:05→21:06)
[2019-06-30] MEDS: amLODIPine 5 MG TAB PO SCH (09:05)
[2019-06-30] MEDS: POTASSIUM CHLORIDE ER 20 MEQ TAB.ER PO SCH (09:05)
[2019-06-30] MEDS: ISOSORBIDE MONONITRATE ER 30 MG TAB.ER.24H PO SCH (09:05)
[2019-06-30] MEDS: ATORVASTATIN 40 MG TAB PO SCH (09:05)
[2019-06-30] MEDS: ASPIRIN 81 MG PO SCH (09:05)
[2019-06-30] MEDS: CALCIUM ACETATE 667 MG CAP PO SCH ×3 (09:05→17:17)
[2019-06-30] MEDS: NICOTINE 14MG/24HR PATCH TRANSDERM SCH (09:06)
[2019-06-30] MEDS: cefTAZidime 1.25 GM in DIALYSIS (PERITONL) DEX 2.5% 2,000 ML INTRAPERIT SCH (09:06)
[2019-06-30] MEDS: CARVEDILOL 12.5 MG TAB PO SCH ×2 (09:06→17:17)
--- NOTE | 2019-06-30 13:00 | PN ---
PROGRESS NOTE Patient is seen for followup for end-stage renal disease. He is maintained on CAPD and was admitted with peritonitis. Cultures did not grow any specific organism. He is currently maintained on ceftazidime intraperitoneally. He did get vancomycin initially. Clinically, patient has improved. He is complaining of mild abdominal pain today and states he has not had a bowel movement. No significant nausea. PHYSICAL EXAMINATION: On examination, blood pressure was 127/66 this morning, heart rate is 72 per minute. Patient is afebrile. EXAMINATION OF THE HEART: S1, S2. EXAMINATION OF THE LUNGS: Bilateral breath sounds are heard. ABDOMEN: Soft and mild tenderness noted in the right upper quadrant. BLEACH MIXER exam is grossly intact. Lower extremities show no evidence of edema. LABS: Labs show sodium of 135, potassium 4.0. Magnesium was 1.8 on 06/27. ASSESSMENT: 1. End-stage renal disease on peritoneal dialysis. Continue current PD exchanges. Continue with antibiotics. The last PD fluid cell count showed WBCs of 7 on 06/26/2019. If the pain persists, we will repeat another fluid analysis for cell count. 2. Constipation. Continue with lactulose. 3. Hypokalemia, maintained on supplementation. 4. Hypertension, currently controlled. 5. Anemia of chronic disease, maintained on Aranesp. PLAN: Check CBC and BMP today. Continue with antibiotics. Anticipate discharge by tomorrow. The patient states he wants to hold off for one more day as he is having occasional abdominal pain. MMODL / IJN: [id number] /
[2019-06-30 13:06] LABS: Basophils % (A) 0 %; Eosinophils # (A) 0.3 k/uL (0-0.7); Eosinophils % (A) 5 %; HCT 30.7 % (39.0-53.0); HGB 10.1 gm/dL (13.0-17.5); Lymphocytes # (A) 0.8 k/uL (1.0-4.8); Lymphocytes % (A) 15 %; MCH 32.1 pg (25.0-35.0); MCHC 32.8 g/dL (31.0-37.0); Mean Platelet Volume 7.7; Monocytes # (A) 0.3 k/uL (0-1.0); Monocytes % (A) 6 %; Neutrophils % (A) 72 %; Platelet Count 225 k/uL (150-450); RBC 3.13 m/uL (4.30-5.90); RDW 14.6 % (11.5-15.5); WBC 5.5 k/uL (3.8-10.6)
[2019-06-30 13:18] LABS: Calcium 8.4 mg/dL (8.4-10.2)
[2019-06-30 14:22] VITALS: BMI 27.0
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
--- NOTE | 2019-07-01 01:17 | P.PN ---
Progress Note - Text Progress Note Date: 06/30/19 Presenting complaint: Tired Interval history: Admitted with peritonitis. Has underlying end-stage kidney disease on CAPD. Cultures were negative. On IV ceftaz Today-laying in bed. Had a diet. Had a bowel movement. No bone pain. Does feel weak and tired. No fever no chills. BP has been running low. Does feel weak in his legs. .Review of systems: Was done for constitutional, cardiovascular, GI, pulmonary. relevant finding as above Active Medications Acetaminophen (Tylenol Tab) 650 mg PO Q4HR PRN PRN Reason: Fever and/ or Mild Pain Albuterol/Ipratropium (Duoneb 0.5 Mg-3 Mg/3 Ml Soln) 3 ml INHALATION RT-TID [facility] Last Admin: 06/30/19 19:17 Dose: 3 ml Documented by: Amlodipine Besylate (Norvasc) 5 mg PO DAILY [facility] Last Admin: 06/30/19 09:05 Dose: 5 mg Documented by: Aspirin (Aspirin) 81 mg PO DAILY [facility] Last Admin: 06/30/19 09:05 Dose: 81 mg Documented by: Atorvastatin Calcium (Lipitor) 40 mg PO DAILY [facility] Last Admin: 06/30/19 09:05 Dose: 40 mg Documented by: Calcitriol (Rocaltrol) 0.5 mcg PO TuTh@0900 [facility] Last Admin: 06/26/19 07:34 Dose: 0.5 mcg Documented by: Calcium Acetate (Phoslo) 667 mg PO AC-TID [facility] Last Admin: 06/30/19 17:17 Dose: 667 mg Documented by: Calcium Acetate (Phoslo) 667 mg PO DAILY PRN PRN Reason: SNACKS Carvedilol (Coreg) 25 mg PO BID-W/MEALS [facility] Last Admin: 06/30/19 17:17 Dose: 25 mg Documented by: Clopidogrel Bisulfate (Plavix) 75 mg PO DAILY [facility] Last Admin: 06/30/19 09:04 Dose: 75 mg Documented by: Darbepoetin Zacarias (Aranesp) 40 mcg SQ Q7D [facility] Last Admin: 06/24/19 15:32 Dose: 40 mcg Documented by: Docusate Sodium (Colace) 100 mg PO BID PRN PRN Reason: Constipation Heparin Sodium (Porcine) (Heparin) 5,000 unit SQ Q12HR [facility] Last Admin: 06/30/19 21:06 Dose: 5,000 unit Documented by: Ceftazidime 1.25 gm/ (Peritoneal Dialysis Solution) 2,000 mls @ 0 mls/hr INTRAP ERIT DAILY@0900 [facility]; Protocol Last Admin: 06/30/19 09:06 Dose: 0.1 mls/hr Documented by: Peritoneal Dialysis Solution (Delflex With 2.5% Dextrose (2,500 Ml)) 50 g in 2,000 mls @ 0 mls/hr INTRAPERIT 0300,1500,2100 [facility]; Protocol Last Admin: 06/30/19 21:06 Dose: 1 mls/hr Documented by: Isosorbide Mononitrate (Imdur) 30 mg PO DAILY [facility] Last Admin: 06/30/19 09:05 Dose: 30 mg Documented by: Lactulose (Cephulac) 15 gm PO TID PRN PRN Reason: Constipation Lisinopril (Zestril) 10 mg PO DAILY [facility] Last Admin: 06/30/19 09:04 Dose: 10 mg Documented by: Melatonin (Melatonin) 3 mg PO HS PRN PRN Reason: insomnia Last Admin: 06/29/19 21:51 Dose: 3 mg Documented by: Morphine Sulfate (Morphine Sulfate (Inj)) 4 mg IVP Q4HR PRN PRN Reason: Pain Last Admin: 06/24/19 11:06 Dose: 4 mg Documented by: Nicotine (Habitrol 14mg/24hr Patch) 1 patch TRANSDERM DAILY [facility] Last Admin: 06/30/19 09:06 Dose: 1 patch Documented by: Ondansetron HCl (Zofran) 4 mg IVP Q6HR PRN PRN Reason: Nausea And Vomiting Last Admin: 06/27/19 02:19 Dose: 4 mg Documented by: Pantoprazole Sodium (Protonix) 40 mg PO AC-BRKFST [facility] Last Admin: 06/30/19 09:05 Dose: 40 mg Documented by: Potassium Chloride (K-Dur 20) 20 meq PO DAILY [facility] Last Admin: 06/30/19 09:05 Dose: 20 meq Documented by: Senna (Senokot) 8.6 mg PO DAILY PRN PRN Reason: Constipation On examination: VITAL SIGNS: 98.3, 65, 16, 94 x 50, 94% room air GENERAL APPEARANCE: Laying in bed, tired appearing HEENT: Normal external appearance of nose and ear. Oral cavity normal EYES: Pupils equal. Conjunctiva pale. NECK: JVD not raised. Mass not palpable. RESPIRATORY: Respiratory effort normal. Lungs clear to auscultation. CARDIOVASCULAR: First and second sounds normal. No edema. ABDOMEN: Soft. Liver and spleen not palpable. No tenderness. No mass palpable. peritoneal catheter in place PSYCHIATRY: Alert and oriented x3. Mood and affect normal. INVESTIGATIONS, reviewed in the clinical context: White count 5.5 hemoglobin 10.1 potassium 4 bun 48 creatinine 10.47 Peritoneal fluid culture negative. Blood culture negative Assessment: -Acute peritonitis associated with peritoneal dialysis, with cultures being negative -End-stage kidney disease on peritoneal dialysis -Coronary artery disease with stent and coronary bypass -COPD -Hyperlipidemia -Essential hypertension -Chronic congestive heart failure from systolic dysfunction EF 35-40% -Abdominal aortic and is of 5.6 cm being monitored -Renal transplant in 2000 that failure -Peripheral neuropathy -Bilateral hard of hearing -Anemia of chronic kidney disease Plan: Patient to get 7 more days of antibiotic. With peritoneal dialysis. Patient is feeling weak and tired looking for inpatient rehab. manager leasing and social work involved. Care was discussed with the patient.
[2019-07-01] MEDS: DIALYSIS (PERIT 2.5%) 2,500 ML 50 G/2,000 ML BAG INTRAPERIT SCH (03:04)
[2019-07-01 03:48] VITALS: RESP 16
[2019-07-01 07:28] VITALS: BP 117/68; TEMP 98.4
[2019-07-01] MEDS: IPRATROPIUM-ALBUTEROL 3 ML NEB INHALATION SCH ×2 (08:34→12:10)
[2019-07-01 08:37] VITALS: PULSE 70
[2019-07-01] MEDS: CALCIUM ACETATE 667 MG CAP PO SCH ×2 (09:16→13:42)
[2019-07-01] MEDS: cefTAZidime 1.25 GM in DIALYSIS (PERITONL) DEX 2.5% 2,000 ML INTRAPERIT SCH (09:27)
[2019-07-01] MEDS: amLODIPine 5 MG TAB PO SCH (09:28)
[2019-07-01] MEDS: HEPARIN SODIUM,PORCINE 5,000 UNIT/ML 1 ML VIAL SQ SCH (09:28)
[2019-07-01] MEDS: NICOTINE 14MG/24HR PATCH TRANSDERM SCH (09:28)
[2019-07-01] MEDS: CLOPIDOGREL 75 MG TAB PO SCH (09:28)
[2019-07-01] MEDS: POTASSIUM CHLORIDE ER 20 MEQ TAB.ER PO SCH (09:28)
[2019-07-01] MEDS: CALCITRIOL 0.25 MCG CAP PO SCH (09:28)
[2019-07-01] MEDS: ASPIRIN 81 MG PO SCH (09:28)
[2019-07-01] MEDS: PANTOPRAZOLE 40 MG TABLET PO SCH (09:28)
[2019-07-01] MEDS: LISINOPRIL 10 MG TAB PO SCH (09:28)
[2019-07-01] MEDS: ISOSORBIDE MONONITRATE ER 30 MG TAB.ER.24H PO SCH (09:28)
[2019-07-01] MEDS: ATORVASTATIN 40 MG TAB PO SCH (09:28)
[2019-07-01] MEDS: CARVEDILOL 12.5 MG TAB PO SCH (09:28)
--- NOTE | 2019-07-01 18:06 | PN ---
PROGRESS NOTE Patient is seen for followup for end-stage renal disease and peritonitis. The patient is maintained on ceftazidime. His cultures were negative. Symptomatically he has improved significantly with no complaints of abdominal pain today. The patient states he has been eating and tolerating oral diet well. His peritoneal dialysis has been going well. PHYSICAL EXAMINATION: This morning blood pressure 117/68, heart rate 70 per minute. Patient is afebrile. Examination of the heart S1, S2. Examination of the lungs, bilateral breath sounds are heard. Abdomen is soft, nontender. Examination of the lower extremities shows no evidence of edema. COMPOSITION WEATHERBOARD INSTALLER exam grossly intact. LAB DATA: Reviewed. Hemoglobin of 10.1, sodium 133, potassium 4.0. ASSESSMENT: 1. End-stage renal disease, on peritoneal dialysis. Continue current PD exchanges. 2. Peritoneal dialysis peritonitis with cultures being negative status post vancomycin. Currently maintained on ceftazidime and significantly improved. PD fluid cell count was down to 7 on 06/26/2019 from 2345 initially. PLAN: Followup as outpatient. Continue with antibiotics for another 2 weeks. MMODL / IJN: [id number] /
--- NOTE | 2019-07-02 00:43 | P.DS ---
Providers Date of admission: 06/23/19 18:28 Expected date of discharge: 07/01/19 Attending physician: Levar Gregory Consults: 06/23/19 18:28 Consult Physician Routine Consulting Provider: Jayden Stone Consult Reason/Comments: arf Do you want consulting provider notified?: Yes 06/23/19 22:27 Consult Physician Urgent Consulting Provider: Morro Campos Consult Reason/Comments: Peritoneal dialysis catheter associated peritonitis Do you want consulting provider notified?: Yes 06/27/19 02:31 Consult Physician Routine Consulting Provider: Dave Fox Consult Reason/Comments: tachycardia Do you want consulting provider notified?: Yes, Notify in am Primary care physician: [facility] Course: Hospital course: Admitted with abdominal pain, diagnosed with peritonitis. Has underlying end- stage kidney disease on CAPD. Cultures were negative. Received IV ceftaz. Doing much better. Tolerating a diet. No fever no chills. Patient receives 7 more days of antibiotics at home. Discussed with patient. Consultation: Dr. Campos from ID Dr. Steen from nephrology Dr. Zepeda from cardiology On examination: VITAL SIGNS: 98.4, 69, 16, 117/68, 97% on 2 L GENERAL APPEARANCE: Laying in bed, tired appearing HEENT: Normal external appearance of nose and ear. Oral cavity normal EYES: Pupils equal. Conjunctiva pale. NECK: JVD not raised. Mass not palpable. RESPIRATORY: Respiratory effort normal. Lungs clear to auscultation. CARDIOVASCULAR: First and second sounds normal. No edema. ABDOMEN: Soft. Liver and spleen not palpable. No tenderness. No mass palpable. peritoneal catheter in place PSYCHIATRY: Alert and oriented x3. Mood and affect normal. INVESTIGATIONS, reviewed in the clinical context: White count 5.5 hemoglobin 10.1 potassium 4 bun 48 creatinine 10.47 Peritoneal fluid culture negative. Blood culture negative 2-D echo shows-EF 20/25 percent multiple wall motion abnormality, concentric left medical hypertrophy, moderate mitral regurgitation Assessment: -Acute peritonitis associated with peritoneal dialysis, with cultures being negative -End-stage kidney disease on peritoneal dialysis -Coronary artery disease with stent and coronary bypass -COPD -Hyperlipidemia -Essential hypertension -Chronic congestive heart failure from systolic dysfunction EF 20/25 percent -Abdominal aortic and is of 5.6 cm being monitored -Renal transplant in 2000 that failure -Peripheral neuropathy -Bilateral hard of hearing -Anemia of chronic kidney disease -Hypertensive heart disease -Moderate mitral regurgitation nonrheumatic Disposition: Home Patient Condition at Discharge: Stable Plan - Discharge Summary Discharge Rx Participant: Yes New Discharge Prescriptions: New Darbepoetin Zacarias [Aranesp] 40 mcg SQ Q7D syringe Ipratropium [place] [Atrovent Hfa] 2 puff INHALATION QID #1 inhaler cefTAZidime [Fortaz] 1.25 gm INTRAPERIT DAILY@0900 #7 vial Acetaminophen Tab [Tylenol] 650 mg PO Q4HR PRN tab PRN Reason: Fever and/ or Mild Pain Continue Clopidogrel [Plavix] 75 mg PO DAILY Aspirin 81 mg PO DAILY chew Carvedilol [Coreg*] 25 mg PO BID-W/MEALS #60 tab Sennosides [Senokot] 8.6 mg PO DAILY PRN #30 tab PRN Reason: Constipation Melatonin 3 mg PO HS PRN #0 tablet PRN Reason: insomnia Potassium Chloride ER [K-Dur 10] 20 meq PO DAILY Nicotine 14Mg/24Hr Patch [Habitrol] 1 patch TRANSDERM DAILY Lisinopril [Zestril] 10 mg PO DAILY Lactulose 10 gm PO TID PRN PRN Reason: Diarrhea Calcium Acetate [PhosLo] 667 mg PO AC-TID Calcitriol 0.5 mcg PO TUTH amLODIPine [Norvasc] 5 mg PO DAILY Calcium Acetate [PhosLo] 667 mg PO DAILY PRN PRN Reason: SNACKS Isosorbide Mononitrate ER [Imdur] 30 mg PO DAILY Atorvastatin [Lipitor] 40 mg PO DAILY Discontinued Docusate [Colace] 100 mg PO BID PRN PRN Reason: Constipation No Action Docusate [Colace] 100 mg PO BID PRN PRN Reason: Constipation Albuterol Sulfate [Albuterol Sulfate Hfa] 1 puff INHALATION RT-Q4H PRN PRN Reason: Wheezing Discharge Medication List Clopidogrel [Plavix] 75 mg PO DAILY 03/28/16 [History] Aspirin 81 mg PO DAILY chew 10/17/16 [Rx] Carvedilol [Coreg*] 25 mg PO BID-W/MEALS #60 tab 10/17/16 [Rx] Sennosides [Senokot] 8.6 mg PO DAILY PRN #30 tab 10/17/16 [Rx] Melatonin 3 mg PO HS PRN #0 tablet 10/19/16 [Rx] Atorvastatin [Lipitor] 40 mg PO DAILY 06/23/19 [History] Calcitriol 0.5 mcg PO TUTH 06/23/19 [History] Calcium Acetate [PhosLo] 667 mg PO AC-TID 06/23/19 [History] Calcium Acetate [PhosLo] 667 mg PO DAILY PRN 06/23/19 [History] Isosorbide Mononitrate ER [Imdur] 30 mg PO DAILY 06/23/19 [History] Lactulose 10 gm PO TID PRN 06/23/19 [History] Lisinopril [Zestril] 10 mg PO DAILY 06/23/19 [History] Nicotine 14Mg/24Hr Patch [Habitrol] 1 patch TRANSDERM DAILY 06/23/19 [History] Potassium Chloride ER [K-Dur 10] 20 meq PO DAILY 06/23/19 [History] amLODIPine [Norvasc] 5 mg PO DAILY 06/23/19 [History] Acetaminophen Tab [Tylenol] 650 mg PO Q4HR PRN tab 07/01/19 [Rx] Albuterol Sulfate [Albuterol Sulfate Hfa] 1 puff INHALATION RT-Q4H PRN 07/01/19 [History] Darbepoetin [place] [Aranesp] 40 mcg SQ Q7D syringe 07/01/19 [Rx] Docusate [Colace] 100 mg PO BID PRN 07/01/19 [History] Ipratropium [place] [Atrovent Hfa] 2 puff INHALATION QID #1 inhaler 07/01/19 [Rx] cefTAZidime [Fortaz] 1.25 gm INTRAPERIT DAILY@0900 #7 vial 07/01/19 [Rx] Follow up Appointment(s)/Referral(s): cardiology, [Other] - 1 Week (patient will make appointment) Alfonso Rangel MD [Primary Care Provider] - 07/08/19 1:30 pm (With Autumn) Jayden Stone DO [STAFF PHYSICIAN] - 08/21/19 1:40 pm Discharge Disposition: HOME WITH HOME HEALTH SERVICES
== END 2019-07-01 14:00 | disposition home health service (06) | DRG 919 ==
LOC: EC 16:13 → 4SSUR 18:28
PROVIDERS: ADMIT Hospitalist; ATTEND Hospitalist
PROC: 3E1M39Z Irrigation of Peritoneal Cavity using Dialysate, Percutaneous Approach (ICD-10-PCS; principal; 2019-06-29)
DX: T85.71XA Infection and inflammatory reaction due to peritoneal dialysis catheter, initial encounter (principal); A41.9 Sepsis, unspecified organism; K65.2 Spontaneous bacterial peritonitis; N18.6 End stage renal disease; I13.2 Hypertensive heart and chronic kidney disease with heart failure and with stage 5 chronic kidney disease, or end stage renal disease; I50.22 Chronic systolic (congestive) heart failure; I47.2 Ventricular tachycardia; Z94.0 Kidney transplant status; E87.2 Acidosis; R18.8 Other ascites; E11.22 Type 2 diabetes mellitus with diabetic chronic kidney disease; D63.1 Anemia in chronic kidney disease; I25.5 Ischemic cardiomyopathy; E78.5 Hyperlipidemia, unspecified; I34.0 Nonrheumatic mitral (valve) insufficiency; I45.10 Unspecified right bundle-branch block; I71.4 Abdominal aortic aneurysm, without rupture; J44.9 Chronic obstructive pulmonary disease, unspecified; K59.00 Constipation, unspecified; M89.8X9 Other specified disorders of bone, unspecified site; Y84.1 Kidney dialysis as the cause of abnormal reaction of the patient, or of later complication, without mention of misadventure at the time of the procedure; E87.6 Hypokalemia; F17.200 Nicotine dependence, unspecified, uncomplicated; G62.9 Polyneuropathy, unspecified; H91.90 Unspecified hearing loss, unspecified ear; I25.10 Atherosclerotic heart disease of native coronary artery without angina pectoris; Z99.2 Dependence on renal dialysis; I25.2 Old myocardial infarction; Z79.82 Long term (current) use of aspirin; Z79.02 Long term (current) use of antithrombotics/antiplatelets; Z79.899 Other long term (current) drug therapy; Z86.73 Personal history of transient ischemic attack (TIA), and cerebral infarction without residual deficits; Z80.41 Family history of malignant neoplasm of ovary; Z89.029 Acquired absence of unspecified finger(s); Z95.1 Presence of aortocoronary bypass graft; Z95.5 Presence of coronary angioplasty implant and graft; Z82.49 Family history of ischemic heart disease and other diseases of the circulatory system
CPT/HCPCS: 36415; 71045; 74022; 80048; 80053; 80202; 82042; 82150; 82550; 82945; 83605; 83690; 83735; 84157; 84443; 84484; 85025; 85027; 87040; 87070; 87205; 89050; 93005; 93306; 94640; 94760; 96361; 96365; 96375; 99285

== ENCOUNTER 2019-07-01 21:21 | Inpatient (IN) | payer MEDICARE, BC ==
[2019-07-01] MEDS ORDERED: MORPHINE SULFATE 4 MG/ML SYRINGE IV STA (22:30)
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
[2019-07-01 23:28] LABS: Basophils % (A) 0 %; Eosinophils # (A) 0.3 k/uL (0-0.7); Eosinophils % (A) 3 %; HGB 11.3 gm/dL (13.0-17.5); Lymphocytes # (A) 0.9 k/uL (1.0-4.8); Lymphocytes % (A) 13 %; MCHC 32.2 g/dL (31.0-37.0); MCV 99.5 fL (80.0-100.0); Macrocytosis Slight; Mean Platelet Volume 7.2; Monocytes # (A) 0.5 k/uL (0-1.0); Monocytes % (A) 7 %; Neutrophils # (A) 5.4 k/uL (1.3-7.7); Neutrophils % (A) 74 %; Platelet Count 220 k/uL (150-450); RBC 3.52 m/uL (4.30-5.90); RDW 14.9 % (11.5-15.5); WBC 7.3 k/uL (3.8-10.6)
[2019-07-01 23:47] LABS: Albumin 3.6 g/dL (3.5-5.0); Potassium 5.4 mmol/L (3.5-5.1); Total Bilirubin 0.6 mg/dL (0.2-1.3); Total Protein 6.3 g/dL (6.3-8.2)
[2019-07-02] MEDS ORDERED: NALOXONE 0.4 MG/ML 1 ML VIAL IV PRN (01:52)
[2019-07-02] MEDS ORDERED: ACETAMINOPHEN TAB 325 MG TAB PO PRN (01:52)
[2019-07-02] MEDS ORDERED: LACTULOSE 200 GM/300 ML (FROM 1/2 GAL JUG) PO PRN (02:20)
[2019-07-02] MEDS ORDERED: MELATONIN 3 MG TABLET PO PRN (02:20)
[2019-07-02] MEDS ORDERED: SENNOSIDES 8.6 MG TAB PO PRN (02:20)
[2019-07-02] MEDS ORDERED: ALBUTEROL NEBULIZED 2.5 MG/3 ML INHALATION PRN (02:20)
[2019-07-02] MEDS ORDERED: DOCUSATE 100 MG CAP PO PRN (02:20)
[2019-07-02] MEDS ORDERED: CALCIUM ACETATE 667 MG CAP PO PRN (02:20)
[2019-07-02] MEDS ORDERED: SODIUM CHLORIDE 0.9% IVPB SCH ×2 (09:00)
[2019-07-02] MEDS ORDERED: CEFTAZIDIME IVPB SCH ×2 (09:00)
[2019-07-02] MEDS ORDERED: cefTAZidime 1 GM VIAL IVPB SCH ×2 (09:00)
[2019-07-02] MEDS: MORPHINE SULFATE 4 MG/ML SYRINGE IV PRN ×3 (09:09→21:31)
[2019-07-02] MEDS: CLOPIDOGREL 75 MG TAB PO SCH (09:10)
[2019-07-02] MEDS: ASPIRIN 81 MG PO SCH (09:10)
[2019-07-02] MEDS: ISOSORBIDE MONONITRATE ER 30 MG TAB.ER.24H PO SCH (09:10)
[2019-07-02] MEDS: amLODIPine 5 MG TAB PO SCH (09:10)
[2019-07-02] MEDS: CALCIUM ACETATE 667 MG CAP PO SCH ×3 (09:10→17:38)
[2019-07-02] MEDS: CARVEDILOL 12.5 MG TAB PO SCH ×2 (09:10→17:38)
[2019-07-02] MEDS: ATORVASTATIN 40 MG TAB PO SCH (09:10)
[2019-07-02] MEDS: LISINOPRIL 10 MG TAB PO SCH (09:10)
[2019-07-02] MEDS: NICOTINE 14MG/24HR PATCH TRANSDERM SCH (09:18)
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
[2019-07-02] MEDS: IPRATROPIUM 0.5 MG/2.5 ML NEBU INHALATION SCH ×3 (12:12→19:08)
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
[2019-07-02] MEDS: cefTAZidime 1.25 GM in DIALYSIS (PERITONL) DEX 2.5% 2,000 ML INTRAPERIT SCH (23:32)
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
[2019-07-03] MEDS: MORPHINE SULFATE 4 MG/ML SYRINGE IV PRN ×5 (01:55→22:16)
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
[2019-07-03] MEDS: DIALYSIS (PERIT 1.5%) 2,000 ML 30 G/2,000 ML BAG INTRAPERIT SCH ×2 (05:16→17:40)
[2019-07-03 06:52] LABS: Appearance,BF Clear; Color,BF Yellow; Nucleated Cells, Body Fluid 11 /uL; RBC, Body Fluid 20 /uL
[2019-07-03] MEDS: CARVEDILOL 12.5 MG TAB PO SCH ×2 (07:31→17:47)
[2019-07-03] MEDS: CALCITRIOL 0.25 MCG CAP PO SCH (07:31)
[2019-07-03] MEDS: NICOTINE 14MG/24HR PATCH TRANSDERM SCH (07:31)
[2019-07-03] MEDS: ATORVASTATIN 40 MG TAB PO SCH (07:32)
[2019-07-03] MEDS: ASPIRIN 81 MG PO SCH (07:32)
[2019-07-03] MEDS: LISINOPRIL 10 MG TAB PO SCH (07:32)
[2019-07-03] MEDS: amLODIPine 5 MG TAB PO SCH (07:32)
[2019-07-03] MEDS: CLOPIDOGREL 75 MG TAB PO SCH (07:32)
[2019-07-03] MEDS: CALCIUM ACETATE 667 MG CAP PO SCH ×3 (07:32→17:47)
[2019-07-03] MEDS: ISOSORBIDE MONONITRATE ER 30 MG TAB.ER.24H PO SCH (07:32)
[2019-07-03] MEDS: IPRATROPIUM 0.5 MG/2.5 ML NEBU INHALATION SCH ×4 (08:23→20:53)
--- NOTE | 2019-07-03 09:09 | US ---
EXAMINATION TYPE: US duplex aorta DATE OF EXAM: 07/03/2019 COMPARISON: NONE CLINICAL HISTORY: AAA follow-up. Patient states having a hx of AAA. HTN. Extremely limited exam due to overlying bowel gas and patient body habitus. Limited visualization of Aorta in its entirety due to above EXAM MEASUREMENTS: Abdominal Aorta: Proximal: 2.1 x 2.3 cm Mid: 2.1 x 2.4 cm Distal: AAA visualized - 6.7 x 4.4 x 3.7 cm in craniocaudal by transverse by anterior posterior d imension. Bifurcation: Not visualized Trace amount of free fluid seen in RUQ abdomen IMPRESSION: Distal abdominal aortic aneurysm measures 4.4 x 3.7 cm in transverse by anterior posterio r dimension and extends 6.7 cm in length. Incidentally trace amount of ascites is seen.
--- NOTE | 2019-07-03 10:50 | PN ---
PROGRESS NOTE The patient is a 69-year-old gentleman. I was consulted for abdominal aortic aneurysm evaluation. The patient had an ultrasound done today. We have reviewed the ultrasound. The abdominal aortic aneurysm is stable. The AP and transverse diameters 4.4 x 3.7 and length is 6.7 cm. At this point, patient is stable from the from aorta point of view. No surgical intervention needed. We will follow in my office in 3 weeks. At this point, patient has been seen by Nephrology for peritoneal dialysis. MMODL / IJN: [id number] /
[2019-07-03] MEDS: DIALYSIS (PERIT 2.5%) 2,000 ML 50 G/2,000 ML BAG INTRAPERIT SCH (12:21)
--- NOTE | 2019-07-03 12:41 | CONS ---
DATE OF CONSULTATION: 07/03/2019 This is a 69-year-old gentleman who has been admitted with possibility of peritoneal dialysis catheter infection. The patient has been treated with Infectious Disease with IV antibiotic. Patient has history of chronic renal failure, had a kidney transplant in the past, which has failed and patient also has an abdominal aortic aneurysm which has been monitored by his Cardiology. SURGICAL HISTORY: Patient had cardiac surgery, open-heart surgery and also patient had a kidney transplant in the past. PHYSICAL EXAMINATION: The patient was seen in his room. His vitals are stable. Lying comfortably in bed, just had his breakfast. Neck is supple. Trachea central. CHEST: Clear. The patient has mild discomfort in the right lower quadrant. The patient has peritoneal dialysis catheter. His femoral pulses are present. The patient had ultrasound done this morning. We will review the ultrasound. Follow with you. DALTON / MICHELLE: [id number] / MTDD
--- NOTE | 2019-07-03 15:39 | XR ---
EXAMINATION TYPE: XR abdomen acute w cxr DATE OF EXAM: 07/03/2019 COMPARISON: 06/23/2019 HISTORY: Constipation TECHNIQUE: Supine, upright, and left side down lateral decubitus views of the abdomen are obtained. FINDINGS: Bilateral lower lobe subsegmental consolidation. The heart is enlarged. Hyperinflation. Postsurgical changes. Biapical pleural thickening. No pneumothorax. Bowel gas pattern is nonspecific. There is a catheter within the pelvis. Vascular calcifications with suspected 6.5 cm infrarenal abdominal aortic aneurysm. Chronic deformity of the left iliac bone like ly postsurgical. Radiopaque density overlying the right iliac bone nonspecific and stable. A right lo wer lobe and left lower lobe subsegmental consolidation is seen. Retained fecal debris throughout the colon. IMPRESSION: 1. Findings are suggestive of 6.5 cm infrarenal abdominal aortic aneurysm. Report called to the patie nt's nurse. 2. Correlate for constipation. 3. Bilateral lower lobe atelectasis favored over infiltrate.
--- NOTE | 2019-07-03 18:44 | PN ---
PROGRESS NOTE Patient is seen for followup for end-stage renal disease. He was just discharged from the hospital after admission for CAPD peritonitis. Patient apparently did not do any PD exchanges at home. Since admission he is maintained on dialysis and is doing well. He also complained of abdominal pain on admission, which seems to have improved. PD fluid cell count did not show evidence of recurring peritonitis. Cell count was not elevated. The patient did say that he has not had any significant bowel movements and that his last bowel movement was more than 10 days ago. On examination today, blood pressure is 148/84, heart rate of 68 per minute. Patient is afebrile. EXAMINATION OF THE HEART: S1 and S2. EXAMINATION OF LUNGS: Bilateral breath sounds are heard. ABDOMEN: Soft, non-tender. Examination of lower extremities shows no evidence of edema. DRILL OPERATOR PNEUMATIC exam is grossly intact. Labs are not available from today. ASSESSMENT: 1. End-stage renal disease, on peritoneal dialysis. Continue current PD exchanges. 2. Abdominal pain, most likely related to underlying constipation. There is no evidence of peritonitis on the PD fluid. We will treat him for constipation. 3. Mild hyperkalemia secondary to patient not doing his dialysis post discharge. We will check labs today. 4. Hypertension with chronic kidney disease, currently controlled. 5. Chronic kidney disease mineral bone disorder, maintained on phosphate binders. PLAN: Treat constipation. Continue current PD exchanges. No evidence of peritonitis. MMODL / IJN: [id number] /
--- NOTE | 2019-07-03 18:49 | CT ---
EXAMINATION TYPE: CT angio abd aorta w/Runoff DATE OF EXAM: 07/03/2019 COMPARISON: None HISTORY: AAA. PT c/o lack of feeling in feet. HX CAD, heart failure, COPD, HTN, [place]. Pt labs G-4, C-10 .96, B-54 and will be receiving dialysis after scan CT DLP: 1812.90 mGycm, Automated Exposure Control for Dose Reduction was Utilized. CONTRAST: CT scan of the abdomen and pelvis is performed with oral and with IV Contrast, patient injected with 125 mL of Isovue 370. There are 3-D post processed images. FINDINGS: There is small right pleural effusion. There is fluid in the abdomen consistent with peritoneal dialy sis. There is advanced renal atrophy. There are multiple gallstones. Liver shows no focal defect. Hea rt is enlarged. There is dense coronary artery calcification. Spleen is intact. There is no evidence of pancreatic mass. Stomach shows no focal defect. The bile ducts are not dilated. There is no adrenal mass. There is aneurysm of the lower abdominal aorta that measures 4.8 cm. There is a 5 cm calcified mass in the pelvis on the right side that is consistent with failed renal transpl ant. There is no inguinal hernia. There is mild urinary bladder wall thickening. There is no mesenter ic edema. There is patency of the abdominal aorta without evidence of hemodynamic stenosis. There is plaque for mation at the origins of the iliac arteries with probably more than 50% stenosis. There is patency of the external iliac arteries with plaque formation. There is extensive plaque in the femoral arteries bilaterally. There is arterial flow in both popliteal arteries. There is extensive plaque in the pop liteal arteries. There is patency of the celiac artery and superior mesenteric artery. There is plaqu e formation at the origins. There is patency of the tibial artery trifurcation. There is arterial ayana w in the posterior tibial arteries bilaterally at the ankles. IMPRESSION: Extensive diffuse atherosclerotic vascular disease involving the femoral and popliteal and iliac nathan quincy. There is multiple segments of more than 75% stenosis bilaterally. 4.8 cm aneurysm of the lower abdominal aorta.
[2019-07-03 20:31] LABS: Calcium 8.3 mg/dL (8.4-10.2); Potassium 5.3 mmol/L (3.5-5.1)
--- NOTE | 2019-07-03 22:50 | P.PN ---
Progress Note - Text Progress Note Date: 07/03/19 Chief Complaint: Abdominal pain Interval history: This is a pleasant 69-year-old patient of Dr. martinez. Patient was discharged yesterday. He was admitted on June 23 with abdominal pain. She has a CAPD catheter for peritoneal dialysis. He was then diagnosed with CAPD catheter associated peritonitis. Cultures were negative. Patient had been getting IV ceftazidime. When he left yesterday was afebrile. Was doing well and tolerating his diet well. He was seen by Dr. Steen from nephrology and Dr. Campos for infectious disease. Patient went home was doing well. Then he started developing diffuse abdominal pain that progressively got worse. There were no fever no chills. No nausea vomiting. No change in bowel pattern. Decided to come back to the ER. Patient admitted for the same. Patient chronic stable medical conditions include end-stage kidney disease on peritoneal dialysis, carotid artery disease with history of stent and bypass, COPD, hyperlipidemia, hypertension, CHF with EF of 20-25%, abdominal aortic aneurysm of 5.6 cm that is being monitored, renal transplant in 2000 that failed, peripheral neuropathy, hard of hearing, anemia of chronic kidney disease, moderate mitral regurgitation. Today-sitting upon a chair. No nausea vomiting. Stated has not had a bowel movement for 7 days. No fever no chills Review of systems: Was done for constitutional, cardiovascular, GI, pulmonary. relevant finding as above Active Medications Acetaminophen (Tylenol Tab) 650 mg PO Q6HR PRN PRN Reason: Mild Pain or Fever > 100.5 Albuterol Sulfate (Ventolin Nebulized) 2.5 mg INHALATION RT-Q4H PRN PRN Reason: Wheezing Amlodipine Besylate (Norvasc) 5 mg PO DAILY [facility] Last Admin: 07/03/19 07:32 Dose: 5 mg Documented by: Aspirin (Aspirin) 81 mg PO DAILY [facility] Last Admin: 07/03/19 07:32 Dose: 81 mg Documented by: Atorvastatin Calcium (Lipitor) 40 mg PO DAILY [facility] Last Admin: 07/03/19 07:32 Dose: 40 mg Documented by: Calcitriol (Rocaltrol) 0.5 mcg PO TUTH [facility] Last Admin: 07/03/19 07:31 Dose: 0.5 mcg Documented by: Calcium Acetate (Phoslo) 667 mg PO DAILY PRN PRN Reason: SNACKS Calcium Acetate (Phoslo) 667 mg PO AC-TID [facility] Last Admin: 07/03/19 17:47 Dose: 667 mg Documented by: Carvedilol (Coreg) 25 mg PO BID-W/MEALS [facility] Last Admin: 07/03/19 17:47 Dose: 25 mg Documented by: Clopidogrel Bisulfate (Plavix) 75 mg PO DAILY [facility] Last Admin: 07/03/19 07:32 Dose: 75 mg Documented by: Docusate Sodium (Colace) 100 mg PO BID PRN PRN Reason: Constipation Ceftazidime 1.25 gm/ (Peritoneal Dialysis Solution) 2,000 mls @ 2,000 mls/hr INTRAPERIT Q24H [facility] Last Admin: 07/02/19 23:32 Dose: 2,000 mls/hr Documented by: Peritoneal Dialysis Solution (Delflex With 2.5% Dextrose (2,000 Ml)) 50 g in 2,000 mls @ 2,000 mls/hr INTRAPERIT Q24H [facility] Last Admin: 07/03/19 12:21 Dose: 2,000 mls/hr Documented by: Peritoneal Dialysis Solution (Delflex With 1.5% Dextrose (2,000 Ml)) 30 g in 2,000 mls @ 2,000 mls/hr INTRAPERIT Q12H [facility] Last Admin: 07/03/19 17:40 Dose: 2,000 mls/hr Documented by: Ipratropium [place] (Atrovent Nebulized) 0.5 mg INHALATION RT-QID [facility] Last Admin: 07/03/19 20:53 Dose: 0.5 mg Documented by: Isosorbide Mononitrate (Imdur) 30 mg PO DAILY [facility] Last Admin: 07/03/19 07:32 Dose: 30 mg Documented by: Lactulose (Cephulac) 10 gm PO TID PRN PRN Reason: Diarrhea Lisinopril (Zestril) 10 mg PO DAILY [facility] Last Admin: 07/03/19 07:32 Dose: 10 mg Documented by: Melatonin (Melatonin) 3 mg PO HS PRN PRN Reason: insomnia Morphine Sulfate (Morphine Sulfate (Inj)) 4 mg IV Q4HR PRN PRN Reason: Severe Pain Last Admin: 07/03/19 22:16 Dose: 4 mg Documented by: Naloxone HCl (Narcan) 0.2 mg IV Q2M PRN PRN Reason: Opioid Reversal Nicotine (Habitrol 14mg/24hr Patch) 1 patch TRANSDERM DAILY [facility] Last Admin: 07/03/19 07:31 Dose: 1 patch Documented by: Willy ([place]) 8.6 mg PO DAILY PRN PRN Reason: Constipation Physical examination: VITAL SIGNS: 96.3, 59, 20, 1 23 x 62, 99% room air GENERAL: Sitting upon a chair. EYES: Pupils equal. Conjunctiva palel. HEENT: External appearance of nose and ears normal, oral cavity grossly normal, decreased hearing. NECK: JVD not raised; masses not palpable. HEART: First and second heart sounds are normal; no edema. LUNGS: Respiratory rate normal; decreased breath sounds. ABDOMEN: Soft, minimally tender, liver spleen not palpable, no masses palpable, CAPD catheter in place. PSYCH: Alert and oriented x3; mood and affect normal. Investigations: Potassium 5.3 bun 63 creatinine 11.95 Abdominal x-ray showing 6.5 cm abdominal aortic aneurysm, stool retention CTX scan of the abdomen shows 4.8 cm abdominal aortic aneurysm Assessment: -Increasing diffuse abdominal pain in a patient whose examination is not that of a surgical abdomen. Patient was just discharged yesterday with a diagnosis of CAPD associated peritonitis. Cultures were negative. Was treated effectively with ceftaz . Patient was supposed of 7 more days of the same. -Severe constipation. -End-stage kidney disease on peritoneal dialysis -Coronary artery disease with history of stent and bypass -COPD in an ex-smoker -Hyperlipidemia -Essential hypertension -Chronic congestive heart failure from systolic dysfunction EF 20/25% -Abdominal aortic aneurysm 5.6 cm has been monitored -History of failed renal transplant 2000 -Peripheral neuropathy -Chronic hard of hearing bilaterally -Anemia of chronic kidney disease -Moderate mitral regurgitation - Plan: Dr. Leblanc will follow-up on the AAA. We'll give Dulcolax. Suppository. If no response, then we'll give an enema ceftaz is to continue..
[2019-07-03] MEDS ORDERED: BISACODYL 10 MG SUPP RECTAL STA (23:10)
[2019-07-04] MEDS: cefTAZidime 1.25 GM in DIALYSIS (PERITONL) DEX 2.5% 2,000 ML INTRAPERIT SCH (00:14)
[2019-07-04] MEDS: MORPHINE SULFATE 4 MG/ML SYRINGE IV PRN ×5 (03:43→22:42)
[2019-07-04] MEDS: DIALYSIS (PERIT 1.5%) 2,000 ML 30 G/2,000 ML BAG INTRAPERIT SCH ×2 (05:30→17:57)
[2019-07-04] MEDS: IPRATROPIUM 0.5 MG/2.5 ML NEBU INHALATION SCH ×4 (08:12→19:13)
[2019-07-04] MEDS: CARVEDILOL 12.5 MG TAB PO SCH ×2 (08:38→17:38)
[2019-07-04] MEDS: LISINOPRIL 10 MG TAB PO SCH (08:38)
[2019-07-04] MEDS: CALCIUM ACETATE 667 MG CAP PO SCH ×3 (08:38→17:37)
[2019-07-04] MEDS: NICOTINE 14MG/24HR PATCH TRANSDERM SCH (08:38)
[2019-07-04] MEDS: CLOPIDOGREL 75 MG TAB PO SCH (08:39)
[2019-07-04] MEDS: LACTULOSE 20 GM/30 ML CUP PO PRN ×2 (08:39→22:42)
[2019-07-04] MEDS: amLODIPine 5 MG TAB PO SCH (08:39)
[2019-07-04] MEDS: ATORVASTATIN 40 MG TAB PO SCH (08:39)
[2019-07-04] MEDS: ISOSORBIDE MONONITRATE ER 30 MG TAB.ER.24H PO SCH (08:39)
[2019-07-04] MEDS: ASPIRIN 81 MG PO SCH (08:39)
--- NOTE | 2019-07-04 11:56 | PN ---
PROGRESS NOTE Patient is seen for followup for end-stage renal disease. He was readmitted to the hospital with abdominal pain. Patient stated that he had not had a bowel movement for more than 10 days. He did have a small bowel movement yesterday. He states his pain is slightly better. There have been no issues with peritoneal dialysis. There was no evidence of peritonitis noted on the cell count done this admission. PHYSICAL EXAMINATION: Today blood pressure was 130/70, heart rate 68 per minute. He is afebrile. Examination of the heart S1, S2. Examination of the lungs, bilateral breath sounds are heard. Abdomen is soft, nontender. Examination of the lower extremities shows no significant edema. MARKETER exam grossly intact. LABS: Show sodium 132 from yesterday, potassium 5.3, BUN 63, serum creatinine 11.95. ASSESSMENT: 1. End-stage renal disease, on peritoneal dialysis. Continue current PD exchanges. 2. CAPD peritonitis with negative cultures on last admission, maintained on ceftazidime which I will continue. 3. Abdominal pain, most likely related to constipation, somewhat better with bowel movement yesterday. Continue treatment for constipation. 4. Mild hyperkalemia, currently stable. Avoid high potassium intake. PLAN: Continue treatment for constipation. Patient could be discharged today with plans to follow up as outpatient in the [facility]. MMODL / IJN: [id number] /
[2019-07-04] MEDS: DIALYSIS (PERIT 2.5%) 2,000 ML 50 G/2,000 ML BAG INTRAPERIT SCH (13:03)
[2019-07-05] MEDS: cefTAZidime 1.25 GM in DIALYSIS (PERITONL) DEX 2.5% 2,000 ML INTRAPERIT SCH ×2 (00:15→23:57)
[2019-07-05] MEDS: MORPHINE SULFATE 4 MG/ML SYRINGE IV PRN ×2 (03:45→23:40)
[2019-07-05] MEDS: DIALYSIS (PERIT 1.5%) 2,000 ML 30 G/2,000 ML BAG INTRAPERIT SCH ×2 (06:01→18:05)
[2019-07-05] MEDS: IPRATROPIUM 0.5 MG/2.5 ML NEBU INHALATION SCH ×4 (07:26→19:04)
[2019-07-05] MEDS ORDERED: MAGNESIUM CITRATE 296 ML BOTTLE PO ONE (08:30)
[2019-07-05] MEDS: ISOSORBIDE MONONITRATE ER 30 MG TAB.ER.24H PO SCH (08:31)
[2019-07-05] MEDS: CARVEDILOL 12.5 MG TAB PO SCH ×2 (08:31→17:37)
[2019-07-05] MEDS: amLODIPine 5 MG TAB PO SCH (08:31)
[2019-07-05] MEDS: CALCIUM ACETATE 667 MG CAP PO SCH ×3 (08:31→17:37)
[2019-07-05] MEDS: ASPIRIN 81 MG PO SCH (08:31)
[2019-07-05] MEDS: CLOPIDOGREL 75 MG TAB PO SCH (08:31)
[2019-07-05] MEDS: LISINOPRIL 10 MG TAB PO SCH (08:31)
[2019-07-05] MEDS: ATORVASTATIN 40 MG TAB PO SCH (08:31)
[2019-07-05] MEDS: NICOTINE 14MG/24HR PATCH TRANSDERM SCH (08:33)
[2019-07-05 12:03] LABS: Calcium 8.3 mg/dL (8.4-10.2)
[2019-07-05] MEDS: DIALYSIS (PERIT 2.5%) 2,000 ML 50 G/2,000 ML BAG INTRAPERIT SCH (12:25)
--- NOTE | 2019-07-05 12:39 | PN ---
PROGRESS NOTE Patient is seen for followup for end-stage renal disease. He is currently sitting up in bed. He has been tolerating oral intake. However, patient states his abdomen still has occasional abdominal pain. No other complaints. PHYSICAL EXAMINATION: Blood pressure is 116/76, heart rate 63 per minute. He is afebrile. Examination of the heart S1, S2. Examination of the lungs, bilateral breath sounds are heard. Abdomen is soft, distended, currently nontender. Examination of the lower extremities shows no evidence of edema. PHOTO TECH exam grossly intact. LABS: Show sodium 133, potassium 5.0, BUN 61, serum creatinine 11.69. ASSESSMENT: 1. End-stage renal disease, maintained on peritoneal dialysis, which is currently functioning well. 2. Chronic obstructive pulmonary disease peritonitis, maintained on ceftazidime, repeat cell count did not show any evidence of recurring peritonitis. 3. Abdominal pain secondary to constipation, somewhat improved. Continue with treatment for constipation. 4. Chronic kidney disease mineral bone disorder. Continue with PhosLo. 5. Hypertension, controlled. PLAN: Continue with the lactulose and current PD exchanges. MMODL / IJN: [id number] /
--- NOTE | 2019-07-05 17:41 | P.PN ---
Progress Note - Text Progress Note Date: 07/05/19 Chief Complaint: Abdominal pain Interval history: This is a pleasant 69-year-old patient of Dr. martinez. Patient was discharged yesterday. He was admitted on June 23 with abdominal pain. She has a CAPD catheter for peritoneal dialysis. He was then diagnosed with CAPD catheter associated peritonitis. Cultures were negative. Patient had been getting IV ceftazidime. When he left yesterday was afebrile. Was doing well and tolerating his diet well. He was seen by Dr. Steen from nephrology and Dr. Campos for infectious disease. Patient went home was doing well. Then he started developing diffuse abdominal pain that progressively got worse. There were no fever no chills. No nausea vomiting. No change in bowel pattern. Decided to come back to the ER. Patient admitted for the same. Patient chronic stable medical conditions include end-stage kidney disease on peritoneal dialysis, carotid artery disease with history of stent and bypass, COPD, hyperlipidemia, hypertension, CHF with EF of 20-25%, abdominal aortic aneurysm of 5.6 cm that is being monitored, renal transplant in 2000 that failed, peripheral neuropathy, hard of hearing, anemia of chronic kidney disease, moderate mitral regurgitation. Today-she did have a bowel movement yesterday. But not large enough. This morning did get mag citrate. Awaiting results. Otherwise tolerating a diet. Review of systems: Was done for constitutional, cardiovascular, GI, pulmonary. relevant finding as above Active Medications Acetaminophen (Tylenol Tab) 650 mg PO Q6HR PRN PRN Reason: Mild Pain or Fever > 100.5 Albuterol Sulfate (Ventolin Nebulized) 2.5 mg INHALATION RT-Q4H PRN PRN Reason: Wheezing Amlodipine Besylate (Norvasc) 5 mg PO DAILY [facility] Last Admin: 07/05/19 08:31 Dose: 5 mg Documented by: Aspirin (Aspirin) 81 mg PO DAILY [facility] Last Admin: 07/05/19 08:31 Dose: 81 mg Documented by: Atorvastatin Calcium (Lipitor) 40 mg PO DAILY [facility] Last Admin: 07/05/19 08:31 Dose: 40 mg Documented by: Calcitriol (Rocaltrol) 0.5 mcg PO TUTH [facility] Last Admin: 07/03/19 07:31 Dose: 0.5 mcg Documented by: Calcium Acetate (Phoslo) 667 mg PO DAILY PRN PRN Reason: SNACKS Calcium Acetate (Phoslo) 667 mg PO AC-TID [facility] Last Admin: 07/05/19 12:25 Dose: 667 mg Documented by: Carvedilol (Coreg) 25 mg PO BID-W/MEALS [facility] Last Admin: 07/05/19 08:31 Dose: 25 mg Documented by: Clopidogrel Bisulfate (Plavix) 75 mg PO DAILY [facility] Last Admin: 07/05/19 08:31 Dose: 75 mg Documented by: Ceftazidime 1.25 gm/ (Peritoneal Dialysis Solution) 2,000 mls @ 2,000 mls/hr INTRAPERIT Q24H [facility] Last Admin: 07/05/19 00:15 Dose: 2,000 mls/hr Documented by: Peritoneal Dialysis Solution (Delflex With 2.5% Dextrose (2,000 Ml)) 50 g in 2,000 mls @ 2,000 mls/hr INTRAPERIT Q24H [facility] Last Admin: 07/05/19 12:25 Dose: 2,000 mls/hr Documented by: Peritoneal Dialysis Solution (Delflex With 1.5% Dextrose (2,000 Ml)) 30 g in 2,000 mls @ 2,000 mls/hr INTRAPERIT Q12H [facility] Last Admin: 07/05/19 06:01 Dose: 2,000 mls/hr Documented by: Ipratropium [place] (Atrovent Nebulized) 0.5 mg INHALATION RT-QID [facility] Last Admin: 07/05/19 15:56 Dose: 0.5 mg Documented by: Isosorbide Mononitrate (Imdur) 30 mg PO DAILY [facility] Last Admin: 07/05/19 08:31 Dose: 30 mg Documented by: Lactulose (Cephulac) 10 gm PO TID PRN PRN Reason: Diarrhea Last Admin: 07/04/19 22:42 Dose: 10 gm Documented by: Lisinopril (Zestril) 10 mg PO DAILY [facility] Last Admin: 07/05/19 08:31 Dose: 10 mg Documented by: Melatonin (Melatonin) 3 mg PO HS PRN PRN Reason: insomnia Morphine Sulfate (Morphine Sulfate (Inj)) 4 mg IV Q4HR PRN PRN Reason: Severe Pain Last Admin: 07/05/19 03:45 Dose: 4 mg Documented by: Naloxone HCl (Narcan) 0.2 mg IV Q2M PRN PRN Reason: Opioid Reversal Nicotine (Habitrol 14mg/24hr Patch) 1 patch TRANSDERM DAILY [facility] Last Admin: 07/05/19 08:33 Dose: 1 patch Documented by: Willy (Senokot) 8.6 mg PO DAILY PRN PRN Reason: Constipation Physical examination: VITAL SIGNS: 97.7, 63, 18, 106/76, , 98% room air GENERAL: Sitting in the bed EYES: Pupils equal. Conjunctiva pale. HEENT: External appearance of nose and ears normal, oral cavity grossly normal, decreased hearing. NECK: JVD not raised; masses not palpable. HEART: First and second heart sounds are normal; no edema. LUNGS: Respiratory rate normal; decreased breath sounds. ABDOMEN: Soft, baseline distention, minimally tender, liver spleen not palpable, no masses palpable, CAPD catheter in place. PSYCH: Alert and oriented x3; mood and affect normal. Investigations: Potassium 5 bun 61 creatinine 11.6 Abdominal x-ray showing 6.5 cm abdominal aortic aneurysm, stool retention CTX scan of the abdomen shows 4.8 cm abdominal aortic aneurysm Assessment: -Increasing diffuse abdominal pain in a patient whose examination is not that of a surgical abdomen. Patient was just discharged yesterday with a diagnosis of CAPD associated peritonitis. Cultures were negative. Was treated effectively with ceftaz . -Severe constipation. Patient did not respond to the max citrate later in the day. Patient refused enema yesterday. Also refusing enema today. -End-stage kidney disease on peritoneal dialysis -Coronary artery disease with history of stent and bypass -COPD in an ex-smoker -Hyperlipidemia -Essential hypertension -Chronic congestive heart failure from systolic dysfunction EF 20/25% -Abdominal aortic aneurysm 5.6 cm has been monitored -History of failed renal transplant 2000 -Peripheral neuropathy -Chronic hard of hearing bilaterally -Anemia of chronic kidney disease -Moderate mitral regurgitation - Plan: Patient be requested again and again to take the enema. He hasn't had a bowel movement for a few days except for a small one 2 days ago. Other medications to continue.
[2019-07-06] MEDS: DIALYSIS (PERIT 1.5%) 2,000 ML 30 G/2,000 ML BAG INTRAPERIT SCH ×2 (06:10→18:22)
[2019-07-06] MEDS: NICOTINE 14MG/24HR PATCH TRANSDERM SCH (07:08)
[2019-07-06] MEDS: ASPIRIN 81 MG PO SCH (07:08)
[2019-07-06] MEDS: CALCIUM ACETATE 667 MG CAP PO SCH ×3 (07:08→17:34)
[2019-07-06] MEDS: CLOPIDOGREL 75 MG TAB PO SCH (07:08)
[2019-07-06] MEDS: ATORVASTATIN 40 MG TAB PO SCH (07:08)
[2019-07-06] MEDS: IPRATROPIUM 0.5 MG/2.5 ML NEBU INHALATION SCH ×4 (08:45→19:29)
[2019-07-06] MEDS: amLODIPine 5 MG TAB PO SCH (11:53)
[2019-07-06] MEDS: LISINOPRIL 10 MG TAB PO SCH (11:53)
[2019-07-06] MEDS: ISOSORBIDE MONONITRATE ER 30 MG TAB.ER.24H PO SCH (11:53)
[2019-07-06] MEDS: CARVEDILOL 12.5 MG TAB PO SCH ×2 (11:53→17:21)
[2019-07-06] MEDS: LACTULOSE 20 GM/30 ML CUP PO PRN (12:10)
[2019-07-06] MEDS: DIALYSIS (PERIT 2.5%) 2,000 ML 50 G/2,000 ML BAG INTRAPERIT SCH (12:42)
[2019-07-06] MEDS: MORPHINE SULFATE 4 MG/ML SYRINGE IV PRN (13:54)
[2019-07-06] MEDS: LACTULOSE 20 GM/30 ML CUP PO SCH ×2 (16:17→22:13)
--- NOTE | 2019-07-06 22:42 | P.PN ---
Progress Note - Text Progress Note Date: 07/06/19 Chief Complaint: Abdominal pain Interval history: This is a pleasant 69-year-old patient of Dr. martinez. Patient was discharged yesterday. He was admitted on June 23 with abdominal pain. She has a CAPD catheter for peritoneal dialysis. He was then diagnosed with CAPD catheter associated peritonitis. Cultures were negative. Patient had been getting IV ceftazidime. When he left yesterday was afebrile. Was doing well and tolerating his diet well. He was seen by Dr. Steen from nephrology and Dr. Campos for infectious disease. Patient went home was doing well. Then he started developing diffuse abdominal pain that progressively got worse. There were no fever no chills. No nausea vomiting. No change in bowel pattern. Decided to come back to the ER. Patient admitted for the same. Patient chronic stable medical conditions include end-stage kidney disease on peritoneal dialysis, carotid artery disease with history of stent and bypass, COPD, hyperlipidemia, hypertension, CHF with EF of 20-25%, abdominal aortic aneurysm of 5.6 cm that is being monitored, renal transplant in 2000 that failed, peripheral neuropathy, hard of hearing, anemia of chronic kidney disease, moderate mitral regurgitation. Today-has had further bowel movement. Abdomen feels better. No new issues. Getting peritoneal dialysis.. Review of systems: Was done for constitutional, cardiovascular, GI, pulmonary. relevant finding as above Active Medications Acetaminophen (Tylenol Tab) 650 mg PO Q6HR PRN PRN Reason: Mild Pain or Fever > 100.5 Albuterol Sulfate (Ventolin Nebulized) 2.5 mg INHALATION RT-Q4H PRN PRN Reason: Wheezing Last Admin: 07/06/19 19:29 Dose: 2.5 mg Documented by: Amlodipine Besylate (Norvasc) 5 mg PO DAILY [facility] Last Admin: 07/06/19 11:53 Dose: Not Given Documented by: Aspirin (Aspirin) 81 mg PO DAILY [facility] Last Admin: 07/06/19 07:08 Dose: 81 mg Documented by: Atorvastatin Calcium (Lipitor) 40 mg PO DAILY [facility] Last Admin: 07/06/19 07:08 Dose: 40 mg Documented by: Calcitriol (Rocaltrol) 0.5 mcg PO TUTH [facility] Last Admin: 07/03/19 07:31 Dose: 0.5 mcg Documented by: Calcium Acetate (Phoslo) 667 mg PO DAILY PRN PRN Reason: SNACKS Calcium Acetate (Phoslo) 667 mg PO AC-TID [facility] Last Admin: 07/06/19 17:34 Dose: 667 mg Documented by: Carvedilol (Coreg) 25 mg PO BID-W/MEALS [facility] Last Admin: 07/06/19 17:21 Dose: Not Given Documented by: Clopidogrel Bisulfate (Plavix) 75 mg PO DAILY [facility] Last Admin: 07/06/19 07:08 Dose: 75 mg Documented by: Ceftazidime 1.25 gm/ (Peritoneal Dialysis Solution) 2,000 mls @ 2,000 mls/hr INTRAPERIT Q24H [facility] Last Admin: 07/05/19 23:57 Dose: 2,000 mls/hr Documented by: Peritoneal Dialysis Solution (Delflex With 2.5% Dextrose (2,000 Ml)) 50 g in 2,000 mls @ 2,000 mls/hr INTRAPERIT Q24H [facility] Last Admin: 07/06/19 12:42 Dose: 2,000 mls/hr Documented by: Peritoneal Dialysis Solution (Delflex With 1.5% Dextrose (2,000 Ml)) 30 g in 2,000 mls @ 2,000 mls/hr INTRAPERIT Q12H [facility] Last Admin: 07/06/19 18:22 Dose: 2,000 mls/hr Documented by: Ipratropium [place] (Atrovent Nebulized) 0.5 mg INHALATION RT-QID [facility] Last Admin: 07/06/19 19:29 Dose: 0.5 mg Documented by: Isosorbide Mononitrate (Imdur) 30 mg PO DAILY [facility] Last Admin: 07/06/19 11:53 Dose: Not Given Documented by: Lactulose (Cephulac) 10 gm PO TID [facility] Last Admin: 07/06/19 22:13 Dose: Not Given Documented by: Lisinopril (Zestril) 10 mg PO DAILY [facility] Last Admin: 07/06/19 11:53 Dose: Not Given Documented by: Melatonin (Melatonin) 3 mg PO HS PRN PRN Reason: insomnia Morphine Sulfate (Morphine Sulfate (Inj)) 4 mg IV Q4HR PRN PRN Reason: Severe Pain Last Admin: 07/06/19 13:54 Dose: 4 mg Documented by: Naloxone HCl (Narcan) 0.2 mg IV Q2M PRN PRN Reason: Opioid Reversal Nicotine (Habitrol 14mg/24hr Patch) 1 patch TRANSDERM DAILY [facility] Last Admin: 07/06/19 07:08 Dose: 1 patch Documented by: Willy (Senokot) 8.6 mg PO DAILY PRN PRN Reason: Constipation Last Admin: 07/06/19 08:43 Dose: 8.6 mg Documented by: Physical examination: VITAL SIGNS: 96.8, 61, 16, 107/58, 96% room air GENERAL: Propped up in bed, comfortable EYES: Pupils equal. Conjunctiva pale. HEENT: External appearance of nose and ears normal, oral cavity grossly normal, decreased hearing. NECK: JVD not raised; masses not palpable. HEART: First and second heart sounds are normal; no edema. LUNGS: Respiratory rate normal; decreased breath sounds. ABDOMEN: Soft, baseline distention, minimally tender, liver spleen not palpable, no masses palpable, CAPD catheter in place. PSYCH: Alert and oriented x3; mood and affect normal. Investigations: No labs from today Previous labs: Potassium 5 bun 61 creatinine 11.6 Abdominal x-ray showing 6.5 cm abdominal aortic aneurysm, stool retention CTX scan of the abdomen shows 4.8 cm abdominal aortic aneurysm Assessment: -Peritoneal dialysis related peritonitis, completely a course of ceftazidime. -Severe constipation. Did respond laxatives. -End-stage kidney disease on peritoneal dialysis -Coronary artery disease with history of stent and bypass -COPD in an ex-smoker -Hyperlipidemia -Essential hypertension -Chronic congestive heart failure from systolic dysfunction EF 20/25% -Abdominal aortic aneurysm 5.6 cm has been monitored -History of failed renal transplant 2000 -Peripheral neuropathy -Chronic hard of hearing bilaterally -Anemia of chronic kidney disease -Moderate mitral regurgitation -Medical debility, pending [facility] placement - Plan: Overall doing better. Awaiting placement to [facility]
[2019-07-06] MEDS: cefTAZidime 1.25 GM in DIALYSIS (PERITONL) DEX 2.5% 2,000 ML INTRAPERIT SCH (23:52)
[2019-07-07] MEDS: MORPHINE SULFATE 4 MG/ML SYRINGE IV PRN ×2 (01:35→19:15)
[2019-07-07] MEDS: DIALYSIS (PERIT 1.5%) 2,000 ML 30 G/2,000 ML BAG INTRAPERIT SCH ×2 (06:05→17:10)
[2019-07-07] MEDS: IPRATROPIUM 0.5 MG/2.5 ML NEBU INHALATION SCH ×4 (07:23→19:31)
[2019-07-07] MEDS: CLOPIDOGREL 75 MG TAB PO SCH (07:43)
[2019-07-07] MEDS: NICOTINE 14MG/24HR PATCH TRANSDERM SCH (07:43)
[2019-07-07] MEDS: ATORVASTATIN 40 MG TAB PO SCH (07:43)
[2019-07-07] MEDS: ASPIRIN 81 MG PO SCH (07:43)
[2019-07-07] MEDS: CALCIUM ACETATE 667 MG CAP PO SCH ×3 (07:43→17:40)
[2019-07-07] MEDS: LACTULOSE 20 GM/30 ML CUP PO SCH ×4 (07:44→20:37)
[2019-07-07] MEDS: CARVEDILOL 12.5 MG TAB PO SCH ×2 (09:14→17:40)
[2019-07-07] MEDS: ISOSORBIDE MONONITRATE ER 30 MG TAB.ER.24H PO SCH (09:14)
[2019-07-07] MEDS: amLODIPine 5 MG TAB PO SCH (09:14)
[2019-07-07] MEDS: LISINOPRIL 10 MG TAB PO SCH (09:14)
[2019-07-07] MEDS: DIALYSIS (PERIT 2.5%) 2,000 ML 50 G/2,000 ML BAG INTRAPERIT SCH (11:38)
--- NOTE | 2019-07-07 15:49 | P.PN ---
Progress Note - Text Progress Note Date: 07/07/19 Chief Complaint: Abdominal pain Interval history: This is a pleasant 69-year-old patient of Dr. martinez. Patient was discharged yesterday. He was admitted on June 23 with abdominal pain. She has a CAPD catheter for peritoneal dialysis. He was then diagnosed with CAPD catheter associated peritonitis. Cultures were negative. Patient had been getting IV ceftazidime. When he left yesterday was afebrile. Was doing well and tolerating his diet well. He was seen by Dr. Steen from nephrology and Dr. Campos for infectious disease. Patient went home was doing well. Then he started developing diffuse abdominal pain that progressively got worse. There were no fever no chills. No nausea vomiting. No change in bowel pattern. Decided to come back to the ER. Patient admitted for the same. Patient chronic stable medical conditions include end-stage kidney disease on peritoneal dialysis, carotid artery disease with history of stent and bypass, COPD, hyperlipidemia, hypertension, CHF with EF of 20-25%, abdominal aortic aneurysm of 5.6 cm that is being monitored, renal transplant in 2000 that failed, peripheral neuropathy, hard of hearing, anemia of chronic kidney disease, moderate mitral regurgitation. Today-no new issues. Getting peritoneal dialysis. Tolerating his diet. Abdominal pain well controlled Review of systems: Was done for constitutional, cardiovascular, GI, pulmonary. relevant finding as above Active Medications Acetaminophen (Tylenol Tab) 650 mg PO Q6HR PRN PRN Reason: Mild Pain or Fever > 100.5 Albuterol Sulfate (Ventolin Nebulized) 2.5 mg INHALATION RT-Q4H PRN PRN Reason: Wheezing Last Admin: 07/06/19 19:29 Dose: 2.5 mg Documented by: Amlodipine Besylate (Norvasc) 5 mg PO DAILY [facility] Last Admin: 07/07/19 09:14 Dose: Not Given Documented by: Aspirin (Aspirin) 81 mg PO DAILY [facility] Last Admin: 07/07/19 07:43 Dose: 81 mg Documented by: Atorvastatin Calcium (Lipitor) 40 mg PO DAILY [facility] Last Admin: 07/07/19 07:43 Dose: 40 mg Documented by: Calcitriol (Rocaltrol) 0.5 mcg PO TUTH [facility] Last Admin: 07/03/19 07:31 Dose: 0.5 mcg Documented by: Calcium Acetate (Phoslo) 667 mg PO DAILY PRN PRN Reason: SNACKS Calcium Acetate (Phoslo) 667 mg PO AC-TID [facility] Last Admin: 07/07/19 12:14 Dose: 667 mg Documented by: Carvedilol (Coreg) 25 mg PO BID-W/MEALS [facility] Last Admin: 07/07/19 09:14 Dose: Not Given Documented by: Clopidogrel Bisulfate (Plavix) 75 mg PO DAILY [facility] Last Admin: 07/07/19 07:43 Dose: 75 mg Documented by: Ceftazidime 1.25 gm/ (Peritoneal Dialysis Solution) 2,000 mls @ 2,000 mls/hr INTRAPERIT Q24H [facility] Last Admin: 07/06/19 23:52 Dose: 2,000 mls/hr Documented by: Peritoneal Dialysis Solution (Delflex With 2.5% Dextrose (2,000 Ml)) 50 g in 2,000 mls @ 2,000 mls/hr INTRAPERIT Q24H [facility] Last Admin: 07/07/19 11:38 Dose: 2,000 mls/hr Documented by: Peritoneal Dialysis Solution (Delflex With 1.5% Dextrose (2,000 Ml)) 30 g in 2,000 mls @ 2,000 mls/hr INTRAPERIT Q12H [facility] Last Admin: 07/07/19 06:05 Dose: 2,000 mls/hr Documented by: Ipratropium [place] (Atrovent Nebulized) 0.5 mg INHALATION RT-QID [facility] Last Admin: 07/07/19 15:09 Dose: 0.5 mg Documented by: Isosorbide Mononitrate (Imdur) 30 mg PO DAILY [facility] Last Admin: 07/07/19 09:14 Dose: Not Given Documented by: Lactulose (Cephulac) 10 gm PO TID [facility] Last Admin: 07/07/19 15:23 Dose: Not Given Documented by: Lisinopril (Zestril) 10 mg PO DAILY [facility] Last Admin: 07/07/19 09:14 Dose: Not Given Documented by: Melatonin (Melatonin) 3 mg PO HS PRN PRN Reason: insomnia Morphine Sulfate (Morphine Sulfate (Inj)) 4 mg IV Q4HR PRN PRN Reason: Severe Pain Last Admin: 07/07/19 01:35 Dose: 4 mg Documented by: Naloxone HCl (Narcan) 0.2 mg IV Q2M PRN PRN Reason: Opioid Reversal Nicotine (Habitrol 14mg/24hr Patch) 1 patch TRANSDERM DAILY [facility] Last Admin: 07/07/19 07:43 Dose: 1 patch Documented by: Willy (Senokot) 8.6 mg PO DAILY PRN PRN Reason: Constipation Last Admin: 07/06/19 08:43 Dose: 8.6 mg Documented by: Physical examination: VITAL SIGNS: 97.1, 59, 16, 120/60, 92% room air GENERAL: Laying in bed, comfortable EYES: Pupils equal. Conjunctiva pale. HEENT: External appearance of nose and ears normal, oral cavity grossly normal, decreased hearing. NECK: JVD not raised; masses not palpable. HEART: First and second heart sounds are normal; no edema. LUNGS: Respiratory rate normal; decreased breath sounds. ABDOMEN: Soft, baseline distention, minimally tender, liver spleen not palpable, no masses palpable, CAPD catheter in place. PSYCH: Alert and oriented x3; mood and affect normal. Investigations: No labs from today Previous labs: Potassium 5 bun 61 creatinine 11.6 Abdominal x-ray showing 6.5 cm abdominal aortic aneurysm, stool retention CTX scan of the abdomen shows 4.8 cm abdominal aortic aneurysm Assessment: -Peritoneal dialysis related peritonitis, completely a course of ceftazidime. -Severe constipation. Did respond laxatives. -End-stage kidney disease on peritoneal dialysis -Coronary artery disease with history of stent and bypass -COPD in an ex-smoker -Hyperlipidemia -Essential hypertension -Chronic congestive heart failure from systolic dysfunction EF 20/25% -Abdominal aortic aneurysm to follow-up with Dr. Leblanc as an outpatient -History of failed renal transplant 2000 -Peripheral neuropathy -Chronic hard of hearing bilaterally -Anemia of chronic kidney disease -Moderate mitral regurgitation -Medical debility, pending IPD rehab placement - Plan: Spoke to Dr. Leblanc over the phone. He'll follow up to aneurysm in the office. No intervention for now. Awaiting IUD placement. Patient is stopping his peritoneal Fortaz after tomorrow.
--- NOTE | 2019-07-07 20:56 | PN ---
PROGRESS NOTE Patient is seen for followup for end-stage renal disease. He is maintained on peritoneal dialysis. Patient was recently discharged after admission for CAPD peritonitis, was readmitted with abdominal pain. His main issue is constipation currently. There was no evidence of recurring infection on the peritoneal fluid which was recheck on his repeat admission. The patient has had some bowel movements. He is tolerating oral intake. He does not have any abdominal pain currently and he has been tolerating his PD exchanges fairly well. PHYSICAL EXAMINATION: On examination, blood pressure is 120/60, heart rate 59 per minute. He is afebrile. Examination of the heart S1, S2. Examination of the lungs, bilateral breath sounds are heard. Abdomen is soft, nontender. Exam of lower extremities shows no evidence of edema. [employer] exam grossly intact. LAB: Show sodium 133, potassium 5.0, BUN 61, serum creatinine 11.69. ASSESSMENT: 1. End-stage renal disease, on peritoneal dialysis. Continue current PD exchanges. 2. Abdominal pain, most likely secondary to constipation, currently somewhat improved. The patient is starting to have some bowel movements. 3. Mild hyperkalemia. This patient had not done any of his exchanges at home post discharge. This is currently improved with regular treatments during hospitalization. 4. Recent CAPD peritonitis, maintained on Fortaz, currently improved. Repeat fluid cell count was only at 11. 5. Chronic kidney disease mineral bone disorder. PLAN: Continue current exchanges, possible discharge tomorrow. Continue to treat constipation. MMODL / IJN: [id number] /
[2019-07-08] MEDS: cefTAZidime 1.25 GM in DIALYSIS (PERITONL) DEX 2.5% 2,000 ML INTRAPERIT SCH ×2 (00:13→23:39)
[2019-07-08] MEDS: DIALYSIS (PERIT 1.5%) 2,000 ML 30 G/2,000 ML BAG INTRAPERIT SCH ×2 (05:41→18:04)
[2019-07-08] MEDS: CARVEDILOL 12.5 MG TAB PO SCH ×2 (07:11→18:02)
[2019-07-08] MEDS: ISOSORBIDE MONONITRATE ER 30 MG TAB.ER.24H PO SCH (07:11)
[2019-07-08] MEDS: LACTULOSE 20 GM/30 ML CUP PO SCH ×3 (07:11→19:37)
[2019-07-08] MEDS: amLODIPine 5 MG TAB PO SCH (07:11)
[2019-07-08] MEDS: LISINOPRIL 10 MG TAB PO SCH (07:11)
[2019-07-08] MEDS: ASPIRIN 81 MG PO SCH (07:12)
[2019-07-08] MEDS: CALCITRIOL 0.25 MCG CAP PO SCH (07:12)
[2019-07-08] MEDS: ATORVASTATIN 40 MG TAB PO SCH (07:12)
[2019-07-08] MEDS: CALCIUM ACETATE 667 MG CAP PO SCH ×3 (07:12→18:02)
[2019-07-08] MEDS: NICOTINE 14MG/24HR PATCH TRANSDERM SCH (07:12)
[2019-07-08] MEDS: CLOPIDOGREL 75 MG TAB PO SCH (07:12)
[2019-07-08] MEDS: IPRATROPIUM 0.5 MG/2.5 ML NEBU INHALATION SCH ×4 (07:17→19:49)
--- NOTE | 2019-07-08 10:35 | P.PN ---
Subjective Patient is seen in follow-up for end-stage renal disease. He is maintained on peritoneal dialysis. Oral intake is fair. No vomiting or diarrhea. Denies chest pain or shortness of breath. Vital signs are stable. General: The patient appeared well nourished and normally developed. HEENT: Head exam is unremarkable. Neck is without jugular venous distension. LUNGS: Lungs are clear to auscultation and percussion. Breath sounds decreased. HEART: Rate and Rhythm are regular. First and second heart sounds normal. No murmurs, rubs or gallops. ABDOMEN: Abdominal exam reveals normal bowel sounds. Non-tender and non- distended. No evidence of peritonitis. EXTREMITITES: No clubbing, cyanosis, or edema. Objective - Vital Signs Vital signs: Vital Signs Temp 97.8 F 07/08/19 05:42 Pulse 60 07/08/19 07:29 Resp 18 07/08/19 05:42 BP 107/60 07/08/19 05:42 Pulse Ox 92 L 07/08/19 05:42 Intake & Output 07/07/19 07/08/19 07/08/19 18:59 06:59 18:59 Intake Total 300 Balance 300 Intake: Oral 300 Other: Voiding Method CAPD CAPD CAPD # Voids 2 1 - Labs CBC & Chem 7: 07/01/19 23:15 07/05/19 11:12 Labs: Microbiology - Last 24 Hours (Table) 07/03/19 06:00 Gram Stain - Final Peritoneal Fluid Body Fluid Culture - Final Assessment and Plan Plan: Assessment: 1. End-stage renal disease maintained on peritoneal dialysis. 2. CAPD associated peritonitis maintained on daily Fortaz. 3. Chronic kidney disease mineral bone disease maintained on PhosLo and calcitriol. 4. Abdominal pain. Better. Likely from constipation. 5. Mild hyperkalemia secondary to chronic kidney disease. Better. Plan: Maintain current PD changes. Maintain Fortaz with 1 exchange daily. Will discontinue tomorrow. Maintain lactulose as needed for constipation.
[2019-07-08] MEDS: DIALYSIS (PERIT 2.5%) 2,000 ML 50 G/2,000 ML BAG INTRAPERIT SCH (12:17)
[2019-07-08] MEDS: MORPHINE SULFATE 4 MG/ML SYRINGE IV PRN (14:31)
--- NOTE | 2019-07-08 23:27 | P.PN ---
Progress Note - Text Progress Note Date: 07/08/19 Chief Complaint: Abdominal pain Interval history: This is a pleasant 69-year-old patient of Dr. martinez. Patient was discharged yesterday. He was admitted on June 23 with abdominal pain. She has a CAPD catheter for peritoneal dialysis. He was then diagnosed with CAPD catheter associated peritonitis. Cultures were negative. Patient had been getting IV ceftazidime. When he left yesterday was afebrile. Was doing well and tolerating his diet well. He was seen by Dr. Steen from nephrology and Dr. Campos for infectious disease. Patient went home was doing well. Then he started developing diffuse abdominal pain that progressively got worse. There were no fever no chills. No nausea vomiting. No change in bowel pattern. Decided to come back to the ER. Patient admitted for the same. Patient chronic stable medical conditions include end-stage kidney disease on peritoneal dialysis, carotid artery disease with history of stent and bypass, COPD, hyperlipidemia, hypertension, CHF with EF of 20-25%, abdominal aortic aneurysm of 5.6 cm that is being monitored, renal transplant in 2000 that failed, peripheral neuropathy, hard of hearing, anemia of chronic kidney disease, moderate mitral regurgitation. Patient stable. No abdominal pain. No new issues. Pending to go to [facility] Review of systems: Was done for constitutional, cardiovascular, GI, pulmonary. relevant finding as above Active Medications Acetaminophen (Tylenol Tab) 650 mg PO Q6HR PRN PRN Reason: Mild Pain or Fever > 100.5 Albuterol Sulfate (Ventolin Nebulized) 2.5 mg INHALATION RT-Q4H PRN PRN Reason: Wheezing Last Admin: 07/06/19 19:29 Dose: 2.5 mg Documented by: Amlodipine Besylate (Norvasc) 5 mg PO DAILY [facility] Last Admin: 07/08/19 07:11 Dose: Not Given Documented by: Aspirin (Aspirin) 81 mg PO DAILY [facility] Last Admin: 07/08/19 07:12 Dose: 81 mg Documented by: Atorvastatin Calcium (Lipitor) 40 mg PO DAILY [facility] Last Admin: 07/08/19 07:12 Dose: 40 mg Documented by: Calcitriol (Rocaltrol) 0.5 mcg PO TUTH [facility] Last Admin: 07/08/19 07:12 Dose: 0.5 mcg Documented by: Calcium Acetate (Phoslo) 667 mg PO DAILY PRN PRN Reason: SNACKS Calcium Acetate (Phoslo) 667 mg PO AC-TID [facility] Last Admin: 07/08/19 18:02 Dose: 667 mg Documented by: Carvedilol (Coreg) 25 mg PO BID-W/MEALS [facility] Last Admin: 07/08/19 18:02 Dose: Not Given Documented by: Clopidogrel Bisulfate (Plavix) 75 mg PO DAILY [facility] Last Admin: 07/08/19 07:12 Dose: 75 mg Documented by: Ceftazidime 1.25 gm/ (Peritoneal Dialysis Solution) 2,000 mls @ 2,000 mls/hr INTRAPERIT Q24H [facility] Last Admin: 07/08/19 00:13 Dose: 2,000 mls/hr Documented by: Peritoneal Dialysis Solution (Delflex With 2.5% Dextrose (2,000 Ml)) 50 g in 2,000 mls @ 2,000 mls/hr INTRAPERIT Q24H [facility] Last Admin: 07/08/19 12:17 Dose: 2,000 mls/hr Documented by: Peritoneal Dialysis Solution (Delflex With 1.5% Dextrose (2,000 Ml)) 30 g in 2,000 mls @ 2,000 mls/hr INTRAPERIT Q12H [facility] Last Admin: 07/08/19 18:04 Dose: 2,000 mls/hr Documented by: Ipratropium [place] (Atrovent Nebulized) 0.5 mg INHALATION RT-QID [facility] Last Admin: 07/08/19 19:49 Dose: Not Given Documented by: Isosorbide Mononitrate (Imdur) 30 mg PO DAILY [facility] Last Admin: 07/08/19 07:11 Dose: Not Given Documented by: Lactulose (Cephulac) 10 gm PO TID [facility] Last Admin: 07/08/19 19:37 Dose: Not Given Documented by: Lisinopril (Zestril) 10 mg PO DAILY [facility] Last Admin: 07/08/19 07:11 Dose: Not Given Documented by: Melatonin (Melatonin) 3 mg PO HS PRN PRN Reason: insomnia Morphine Sulfate (Morphine Sulfate (Inj)) 4 mg IV Q4HR PRN PRN Reason: Severe Pain Last Admin: 07/08/19 14:31 Dose: 4 mg Documented by: Naloxone HCl (Narcan) 0.2 mg IV Q2M PRN PRN Reason: Opioid Reversal Nicotine (Habitrol 14mg/24hr Patch) 1 patch TRANSDERM DAILY [facility] Last Admin: 07/08/19 07:12 Dose: 1 patch Documented by: Willy ([place]) 8.6 mg PO DAILY PRN PRN Reason: Constipation Last Admin: 07/06/19 08:43 Dose: 8.6 mg Documented by: Physical examination: VITAL SIGNS: 97.9, 58, 18, 123.73, 96% GENERAL: Sitting at the edge of bed, comfortable EYES: Pupils equal. Conjunctiva pale. HEENT: External appearance of nose and ears normal, oral cavity grossly normal, decreased hearing. NECK: JVD not raised; masses not palpable. HEART: First and second heart sounds are normal; no edema. LUNGS: Respiratory rate normal; decreased breath sounds. ABDOMEN: Soft, baseline distention, non-tender, liver spleen not palpable, no masses palpable, CAPD catheter in place. PSYCH: Alert and oriented x3; mood and affect normal. Investigations: No labs from today Previous labs: Potassium 5 bun 61 creatinine 11.6 Abdominal x-ray showing 6.5 cm abdominal aortic aneurysm, stool retention CTX scan of the abdomen shows 4.8 cm abdominal aortic aneurysm Assessment: -Peritoneal dialysis related peritonitis, completely a course of ceftazidime. -Severe constipation. Did respond laxatives. -End-stage kidney disease on peritoneal dialysis -Coronary artery disease with history of stent and bypass -COPD in an ex-smoker -Hyperlipidemia -Essential hypertension -Chronic congestive heart failure from systolic dysfunction EF 20/25% -Abdominal aortic aneurysm to follow-up with Dr. Leblanc as an outpatient -History of failed renal transplant 2000 -Peripheral neuropathy -Chronic hard of hearing bilaterally -Anemia of chronic kidney disease -Moderate mitral regurgitation -Medical debility, pending IPD rehab placement - Plan: Stable. Awaiting placement to rehab. Continue current meds
--- NOTE | 2019-07-08 23:44 | P.PN ---
Subjective Progress Note Date: 07/08/19 69-year-old male who was recently hospitalized for CAPD related peritonitis. Was home and apparently shortly after arriving home and continued to have some difficulties. He did not do any CAPD exchanges. He became more uremic more nausea emesis generalized malaise and currently presented back to the emergency center this been readmitted. Seeing nephrology in receiving his CAPD. Objective - Vital Signs Vital signs: Vital Signs Temp 97.5 F L 07/08/19 22:57 Pulse 57 L 07/08/19 22:57 Resp 18 07/08/19 22:57 BP 126/67 07/08/19 22:57 Pulse Ox 96 07/08/19 22:57 Intake & Output 07/08/19 07/08/19 07/09/19 06:59 18:59 06:59 Intake Total 300 1080 Balance 300 1080 Intake: Oral 300 1080 Other: Voiding Method CAPD CAPD CAPD # Voids 1 0 # Bowel Movements 0 - Exam HEENT: Anicteric conjunctiva are pink and moist nasal mucosa grossly intact without significant lesions, there is no thrush. Neck: The neck is supple without significant lymphadenopathy or thyromegaly. Lungs: Good bilateral air entry without significant crackles or wheezing. There is no significant bronchial sounds. There is no egophony or dullness. Heart: Regular rate and rhythm with an audible S1-S2, no S3 no S4. There is no significant murmur click or rub, PMI was nondisplaced. Abdomen: The CAPD catheters without difficulties. There is no tenderness or drainage. The abdomen has evidence of current 12 it is not extremely tender it is not with any bruising or flank tenderness Extremities: The upper extremities have excellent pulses they are symmetric, no significant petechiae or telangiectasia. No splinter hemorrhages were noted. The lower extremities are free from significant edema. The peripheral pulses were 2+ and symmetric. Neuro: The patient is awake and alert but complains of feeling foggy. - Labs CBC & Chem 7: 07/01/19 23:15 07/05/19 11:12 Labs: Laboratory Results WBC 7.3 k/uL (3.8-10.6) 07/01/19 23:15 RBC 3.52 m/uL (4.30-5.90) L 07/01/19 23:15 Hgb 11.3 gm/dL (13.0-17.5) L 07/01/19 23:15 Hct 35.0 % (39.0-53.0) L 07/01/19 23:15 MCV 99.5 fL (80.0-100.0) 07/01/19 23:15 MCH 32.0 pg (25.0-35.0) 07/01/19 23:15 MCHC 32.2 g/dL (31.0-37.0) 07/01/19 23:15 RDW 14.9 % (11.5-15.5) 07/01/19 23:15 Plt Count 220 k/uL (150-450) 07/01/19 23:15 Neutrophils % 74 % 07/01/19 23:15 Lymphocytes % 13 % 07/01/19 23:15 Monocytes % 7 % 07/01/19 23:15 Eosinophils % 3 % 07/01/19 23:15 Basophils % 0 % 07/01/19 23:15 Neutrophils # 5.4 k/uL (1.3-7.7) 07/01/19 23:15 Lymphocytes # 0.9 k/uL (1.0-4.8) L 07/01/19 23:15 Monocytes # 0.5 k/uL (0-1.0) 07/01/19 23:15 Eosinophils # 0.3 k/uL (0-0.7) 07/01/19 23:15 Basophils # 0.0 k/uL (0-0.2) 07/01/19 23:15 Macrocytosis Slight 07/01/19 23:15 Sodium 133 mmol/L (137-145) L 07/05/19 11:12 Potassium 5.0 mmol/L (3.5-5.1) 07/05/19 11:12 Chloride 90 mmol/L (98-107) L 07/05/19 11:12 Carbon Dioxide 29 mmol/L (22-30) 07/05/19 11:12 Anion Gap 14 mmol/L 07/05/19 11:12 BUN 61 mg/dL (9-20) H 07/05/19 11:12 Creatinine 11.69 mg/dL (0.66-1.25) H* 07/05/19 11:12 Est GFR (CKD-EPI)AfAm 4 (>60 ml/min/1.73 sqM) 07/05/19 11:12 Est GFR (CKD-EPI)NonAf 4 (>60 ml/min/1.73 sqM) 07/05/19 11:12 Glucose 79 mg/dL (74-99) 07/05/19 11:12 Plasma Lactic Acid [place] 1.3 mmol/L (0.7-2.0) 07/01/19 23:15 Calcium 8.3 mg/dL (8.4-10.2) L 07/05/19 11:12 Total Bilirubin 0.6 mg/dL (0.2-1.3) 07/01/19 23:15 AST 60 U/L (17-59) H 07/01/19 23:15 ALT 58 U/L (21-72) 07/01/19 23:15 Alkaline Phosphatase 99 U/L (38-126) 07/01/19 23:15 Total Protein 6.3 g/dL (6.3-8.2) 07/01/19 23:15 Albumin 3.6 g/dL (3.5-5.0) 07/01/19 23:15 Amylase 66 U/L (30-110) 07/01/19 23:15 Lipase 83 U/L (23-300) 07/01/19 23:15 Fluid Source Peritoneal 07/03/19 06:00 Fluid Color Yellow 07/03/19 06:00 Fluid Appearance Clear 07/03/19 06:00 Fluid RBC 20 /uL 07/03/19 06:00 Fluid Nucleated Cells 11 /uL 07/03/19 06:00 Random Vancomycin 19.6 ug/mL 07/02/19 19:18 Microbiology 07/03/19 06:00 Peritoneal Fluid Gram Stain - Final 07/03/19 06:00 Peritoneal Fluid Body Fluid Culture - Final Assessment and Plan (1) End-stage renal disease on peritoneal dialysis Current Visit: Yes Status: Acute Code(s): N18.6 - END STAGE RENAL DISEASE; Z99.2 - DEPENDENCE ON RENAL DIALYSIS SNOMED Code(s): 596696626 (2) Intractable abdominal pain Current Visit: Yes Status: Acute Code(s): R10.9 - UNSPECIFIED ABDOMINAL PAIN SNOMED Code(s): 00562010 (3) Peritonitis associated with peritoneal dialysis Narrative/Plan: During the recent hospitalization patient had evidence of peritonitis related to his CAPD and possibly recent manipulation of his catheter. He is treated with 2 weeks of vancomycin therapy and now about 2 weeks of Fortaz. Cultures were negative. He has had improvement but continues to have ongoing significant uremia. Is likely uremia is responsible for his cloudy thinking and feeling poorly. Nephrology is working diligently to try to improve his current CAPD effectiveness. Would not plan any further vancomycin treatments. He has noticed a few days of Fortaz for the prior infection. Current cultures are negative. Current Visit: Yes Status: Acute Code(s): T85.71XA - INFECT/INFLM REACTION DUE TO PERITON DIALYSIS CATHETER, INIT SNOMED Code(s): 812166001
[2019-07-09] MEDS: DIALYSIS (PERIT 1.5%) 2,000 ML 30 G/2,000 ML BAG INTRAPERIT SCH (05:35)
[2019-07-09] MEDS: IPRATROPIUM 0.5 MG/2.5 ML NEBU INHALATION SCH ×3 (06:58→15:13)
[2019-07-09] MEDS: NICOTINE 14MG/24HR PATCH TRANSDERM SCH (07:16)
[2019-07-09] MEDS: CARVEDILOL 12.5 MG TAB PO SCH (07:16)
[2019-07-09] MEDS: amLODIPine 5 MG TAB PO SCH (07:16)
[2019-07-09] MEDS: LISINOPRIL 10 MG TAB PO SCH (07:16)
[2019-07-09] MEDS: CLOPIDOGREL 75 MG TAB PO SCH (07:16)
[2019-07-09] MEDS: CALCIUM ACETATE 667 MG CAP PO SCH ×2 (07:17→12:07)
[2019-07-09] MEDS: ATORVASTATIN 40 MG TAB PO SCH (07:17)
[2019-07-09] MEDS: LACTULOSE 20 GM/30 ML CUP PO SCH ×2 (07:17→15:25)
[2019-07-09] MEDS: ISOSORBIDE MONONITRATE ER 30 MG TAB.ER.24H PO SCH (07:17)
[2019-07-09] MEDS: ASPIRIN 81 MG PO SCH (07:17)
--- NOTE | 2019-07-09 11:08 | CDI ---
Documentation Clarification Form Date: 07/09/2019 10:41:44 AM From: Jaja Gottlieb RN CCDS Admit Date: 07/05/2019 1:30:00 PM Patient Name: Alvaro Parker Visit Number: [id number] Discharge Date: ATTENTION: The Clinical Documentation Specialists (CDI) and [facility] Coding Staff appreciate your assistance in clarifying documentation. Please respond to the clarification below the line at the bottom and electronically sign. The CDI & [facility] Coding staff will review the response and follow-up if needed. Please note: Queries are made part of the Legal Health Record. If you have any questions, please contact the author of this message via ITS. Dr. Levar Gregory The patients principal diagnosis has not been clearly identified and requires clarification. The patient presented with the abdominal pain. History/Risk factors:69 year old male discharged on 07/01/2019 with peritonitis associated peritoneal dialysis with negative cultures presents to ED on 07/02/2019 with abdominal pain. Medical Hx ESRD; CHF; HTN; Peritoneal dialysis; Abdominal Aortic aneurysm; Anemia Clinical Indicators: In patient order 07/05/2019 Positive BM 07/06/2019 Lab findings: Wbc 3.52; Hgb 11.3; Lymphocytes 0.9; NA 134; K 5.4; chl 94; Cr 10.96; AST 60; Radiology findings: CT ABD 6.5cm infrarenal Abdominal Aortic Aneurysm # Constipation # Bilateral lower lobe atelectasis favored over infiltrate. Abd Ultrasound - Distal AAA , Incidentally trace amount of ascites Vital Signs: 152.83 79 98.2 16 98% ra Other Clinical Indicators: Treatment: Ceftazidime in peritoneal dialysis , Senokot on 07/06/2019, Mag Citrate 07/05/2019, Lactulose 07/04/2019 x2; and 07/06/2019, Dulcolax per rectum 07/03/2019 Consults: Infectious Disease; Nephrology; Vascular Sx In your professional opinion, can you please clarify which diagnosis, after study, accounted for the patients presenting symptoms and was the reason chiefly responsible for the admission? * Abdominal pain due to the Peritoneal dialysis catheter related peritonitis * Abdominal pain due to Severe constipation * Abdominal pain due to * Other (Last Revision: February 2018) EVA
--- NOTE | 2019-07-09 11:26 | P.PN ---
Subjective Patient is seen in follow-up for end-stage renal disease. He is maintained on peritoneal dialysis. Oral intake is fair. No vomiting or diarrhea. Denies chest pain or shortness of breath. Awaiting placement to rehab. Vital signs are stable. General: The patient appeared well nourished and normally developed. HEENT: Head exam is unremarkable. Neck is without jugular venous distension. LUNGS: Lungs are clear to auscultation and percussion. Breath sounds decreased. HEART: Rate and Rhythm are regular. First and second heart sounds normal. No murmurs, rubs or gallops. ABDOMEN: Abdominal exam reveals normal bowel sounds. Non-tender and non- distended. No evidence of peritonitis. EXTREMITITES: No clubbing, cyanosis, or edema. Objective - Vital Signs Vital signs: Vital Signs Temp 98.2 F 07/09/19 06:01 Pulse 60 07/09/19 07:07 Resp 18 07/09/19 08:00 BP 134/72 07/09/19 06:27 Pulse Ox 98 07/09/19 06:27 Intake & Output 07/08/19 07/09/19 07/09/19 18:59 06:59 18:59 Intake Total 1080 100 50 Balance 1080 100 50 Intake: Oral 1080 100 50 Other: Voiding Method CAPD CAPD CAPD # Voids 0 # Bowel Movements 0 - Labs CBC & Chem 7: 07/01/19 23:15 07/05/19 11:12 Assessment and Plan Plan: Assessment: 1. End-stage renal disease maintained on peritoneal dialysis. 2. CAPD associated peritonitis maintained on daily Fortaz. 3. Chronic kidney disease mineral bone disease maintained on PhosLo and calcitriol. 4. Abdominal pain. Better. Likely from constipation. 5. Mild hyperkalemia secondary to chronic kidney disease. Better. Plan: Maintain current PD changes. Discontinue intraperitoneal antibiotics. Patient has completed 2 week course of intraperitoneal antibiotics. Maintain lactulose as needed for constipation. Stable to be discharged to rehab from nephrology standpoint.
[2019-07-09] MEDS: DIALYSIS (PERIT 2.5%) 2,000 ML 50 G/2,000 ML BAG INTRAPERIT SCH (11:56)
--- NOTE | 2019-07-09 12:37 | P.DS ---
Providers Date of admission: 07/05/19 13:30 Expected date of discharge: 07/09/19 Attending physician: Levar Gregory Consults: 07/02/19 02:19 Consult Physician Routine Consulting Provider: Morro Campos Consult Reason/Comments: Peritoneal dialysis catheter associated peritonitis Do you want consulting provider notified?: Yes 07/02/19 10:11 Consult Physician Routine Consulting Provider: Annabelle Steen Consult Reason/Comments: perotinitis/capd Do you want consulting provider notified?: Yes 07/02/19 22:41 Consult Physician Routine Consulting Provider: Ricky Brand Consult Reason/Comments: AAA Do you want consulting provider notified?: Yes Primary care physician: Alfonso Rangel Hospital Course: Chief Complaint: Abdominal pain Hospital course: This is a pleasant 69-year-old patient of Dr. rangel. Patient was discharged yesterday. He was admitted on June 23 with abdominal pain. She has a CAPD catheter for peritoneal dialysis. He was then diagnosed with CAPD catheter associated peritonitis. Cultures were negative. Patient had been getting IV ceftazidime. When he left yesterday was afebrile. Was doing well and tolerating his diet well. He was seen by Dr. Steen from nephrology and Dr. Campos for infectious disease. Patient went home was doing well. Then he started developing diffuse abdominal pain that progressively got worse. There were no fever no chills. No nausea vomiting. No change in bowel pattern. Decided to come back to the ER. Patient admitted for the same. Patient chronic stable medical conditions include end-stage kidney disease on peritoneal dialysis, carotid artery disease with history of stent and bypass, COPD, hyperlipidemia, hypertension, CHF with EF of 20-25%, abdominal aortic aneurysm o f 5.6 cm that is being monitored, renal transplant in 2000 that failed, peripheral neuropathy, hard of hearing, anemia of chronic kidney disease, moderate mitral regurgitation. Patient's abdominal pain this time is felt to be from constipation. Patient did refuse enema. Finally does respond to laxatives. Finished his course of antibiotics of loss admission for peritonitis. Tolerating his diet well. Patient also has abdominal aortic aneurysm. Not feeling any acute intervention. We will follow with Dr. Brand in the office. Consultants: Nephrology Dr. Yong Brand from vascular Dr. Campos from [place] Physical examination: VITAL SIGNS: 98.2, 65, 15, 115/68, 92% room air GENERAL: Laying in bed, comfortable EYES: Pupils equal. Conjunctiva pale. HEENT: External appearance of nose and ears normal, oral cavity grossly normal, decreased hearing. NECK: JVD not raised; masses not palpable. HEART: First and second heart sounds are normal; no edema. LUNGS: Respiratory rate normal; decreased breath sounds. ABDOMEN: Soft, baseline distention, non-tender, liver spleen not palpable, no masses palpable, CAPD catheter in place. PSYCH: Alert and oriented x3; mood and affect normal. Previous labs: Potassium 5 bun 61 creatinine 11.6 Abdominal x-ray showing 6.5 cm abdominal aortic aneurysm, stool retention CTX scan of the abdomen shows 4.8 cm abdominal aortic aneurysm Discharge diagnosis: -Abdominal pain from severe constipation, does respond laxatives -Peritoneal dialysis related peritonitis, completed course of ceftazidime. -End-stage kidney disease on peritoneal dialysis -Coronary artery disease with history of stent and bypass -COPD in an ex-smoker -Hyperlipidemia -Essential hypertension -Chronic congestive heart failure from systolic dysfunction EF 20/25% -Abdominal aortic aneurysm to follow-up with Dr. Leblanc as an outpatient -History of failed renal transplant 2000 -Peripheral neuropathy -Chronic hard of hearing bilaterally -Anemia of chronic kidney disease -Moderate mitral regurgitation -Medical debility, Disposition: [facility] Patient Condition at Discharge: Stable Plan - Discharge Summary Discharge Rx Participant: No New Discharge Prescriptions: New Sennosides-Docusate Sodium [Senokot-S] 2 tab PO DAILY #60 tablet Continue Clopidogrel [Plavix] 75 mg PO DAILY Aspirin 81 mg PO DAILY chew Carvedilol [Coreg*] 25 mg PO BID-W/MEALS #60 tab Sennosides [Senokot] 8.6 mg PO DAILY PRN #30 tab PRN Reason: Constipation Melatonin 3 mg PO HS PRN #0 tablet PRN Reason: insomnia Potassium Chloride ER [K-Dur 10] 20 meq PO DAILY Nicotine 14Mg/24Hr Patch [Habitrol] 1 patch TRANSDERM DAILY Lisinopril [Zestril] 10 mg PO DAILY Lactulose 10 gm PO TID PRN PRN Reason: Diarrhea Calcium Acetate [PhosLo] 667 mg PO AC-TID Calcitriol 0.5 mcg PO TUTH amLODIPine [Norvasc] 5 mg PO DAILY Calcium Acetate [PhosLo] 667 mg PO DAILY PRN PRN Reason: SNACKS Isosorbide Mononitrate ER [Imdur] 30 mg PO DAILY Atorvastatin [Lipitor] 40 mg PO DAILY Darbepoetin [place] [Aranesp] 40 mcg SQ Q7D syringe Ipratropium [place] [Atrovent Hfa] 2 puff INHALATION QID #1 inhaler cefTAZidime [Fortaz] 1.25 gm INTRAPERIT DAILY@0900 #7 vial Acetaminophen Tab [Tylenol] 650 mg PO Q4HR PRN tab PRN Reason: Fever and/ or Mild Pain Albuterol Sulfate [Albuterol Sulfate Hfa] 1 puff INHALATION RT-Q4H PRN PRN Reason: Wheezing Discontinued Docusate [Colace] 100 mg PO BID PRN PRN Reason: Constipation Discharge Medication List Clopidogrel [Plavix] 75 mg PO DAILY 03/28/16 [History] Aspirin 81 mg PO DAILY chew 10/17/16 [Rx] Carvedilol [Coreg*] 25 mg PO BID-W/MEALS #60 tab 10/17/16 [Rx] Sennosides [Senokot] 8.6 mg PO DAILY PRN #30 tab 10/17/16 [Rx] Melatonin 3 mg PO HS PRN #0 tablet 10/19/16 [Rx] Atorvastatin [Lipitor] 40 mg PO DAILY 06/23/19 [History] Calcitriol 0.5 mcg PO TUTH 06/23/19 [History] Calcium Acetate [PhosLo] 667 mg PO AC-TID 06/23/19 [History] Calcium Acetate [PhosLo] 667 mg PO DAILY PRN 06/23/19 [History] Isosorbide Mononitrate ER [Imdur] 30 mg PO DAILY 06/23/19 [History] Lactulose 10 gm PO TID PRN 06/23/19 [History] Lisinopril [Zestril] 10 mg PO DAILY 06/23/19 [History] Nicotine 14Mg/24Hr Patch [Habitrol] 1 patch TRANSDERM DAILY 06/23/19 [History] Potassium Chloride ER [K-Dur 10] 20 meq PO DAILY 06/23/19 [History] amLODIPine [Norvasc] 5 mg PO DAILY 06/23/19 [History] Acetaminophen Tab [Tylenol] 650 mg PO Q4HR PRN tab 07/01/19 [Rx] Albuterol Sulfate [Albuterol Sulfate Hfa] 1 puff INHALATION RT-Q4H PRN 07/01/19 [History] Darbepoetin [place]acarias [Aranesp] 40 mcg SQ Q7D syringe 07/01/19 [Rx] Ipratropium [place] [Atrovent Hfa] 2 puff INHALATION QID #1 inhaler 07/01/19 [Rx] cefTAZidime [Fortaz] 1.25 gm INTRAPERIT DAILY@0900 #7 vial 07/01/19 [Rx] Sennosides-Docusate Sodium [Senokot-S] 2 tab PO DAILY #60 tablet 07/04/19 [Rx] Follow up Appointment(s)/Referral(s): Sidney Gilman, [NON-STAFF] - As Needed Alfonso Rangel MD [Primary Care Provider] - 1-2 days Patient Instructions/Handouts: Peritonitis (DC)
[2019-07-09 14:35] VITALS: BP 101/52; PULSE 89; RESP 16; TEMP 97.6
== END 2019-07-09 16:00 | DRG 391 ==
LOC: EC 21:21 → 4MS4W 07-02 02:20 → OBSVTOIN 07-05 13:30
PROVIDERS: ADMIT Hospitalist; ATTEND Hospitalist
DX: K59.00 Constipation, unspecified (principal); K65.9 Peritonitis, unspecified; N18.6 End stage renal disease; I13.2 Hypertensive heart and chronic kidney disease with heart failure and with stage 5 chronic kidney disease, or end stage renal disease; I42.9 Cardiomyopathy, unspecified; I50.22 Chronic systolic (congestive) heart failure; T85.71XA Infection and inflammatory reaction due to peritoneal dialysis catheter, initial encounter; T86.12 Kidney transplant failure; D63.1 Anemia in chronic kidney disease; E78.5 Hyperlipidemia, unspecified; E87.5 Hyperkalemia; F17.200 Nicotine dependence, unspecified, uncomplicated; G62.9 Polyneuropathy, unspecified; H91.93 Unspecified hearing loss, bilateral; I25.10 Atherosclerotic heart disease of native coronary artery without angina pectoris; I25.2 Old myocardial infarction; I34.0 Nonrheumatic mitral (valve) insufficiency; I71.4 Abdominal aortic aneurysm, without rupture; J44.9 Chronic obstructive pulmonary disease, unspecified; M89.8X9 Other specified disorders of bone, unspecified site; Y83.8 Other surgical procedures as the cause of abnormal reaction of the patient, or of later complication, without mention of misadventure at the time of the procedure; Z79.02 Long term (current) use of antithrombotics/antiplatelets; Z79.82 Long term (current) use of aspirin; Z79.899 Other long term (current) drug therapy; Z80.41 Family history of malignant neoplasm of ovary; Z82.49 Family history of ischemic heart disease and other diseases of the circulatory system; Z86.73 Personal history of transient ischemic attack (TIA), and cerebral infarction without residual deficits; Z86.79 Personal history of other diseases of the circulatory system; Z89.029 Acquired absence of unspecified finger(s); Z95.1 Presence of aortocoronary bypass graft; Z95.5 Presence of coronary angioplasty implant and graft; Z99.2 Dependence on renal dialysis
CPT/HCPCS: 36415; 74022; 75635; 80048; 80053; 80202; 82150; 83605; 83690; 85025; 87070; 87205; 89050; 93979; 94640; 94760; 96374; 96376; 99285